=== PATIENT | female | born 1940 | race Caucasian/White ===

== ENCOUNTER 2022-07-20 15:36 | Outpatient (CLI) | payer MEDICARE, SELFPAY ==
--- NOTE | 2022-07-20 15:57 | ECHO_ITS ---
Patient Info Name: Chapis Villafuerte Age: 82 years : 1940 Gender: Female Ht: 67 in Wt: 211 lbs BSA: 2.16 m2 HR: 100 bpm BP: 170 / 111 mmHg Heart Rhythm: Sinus Rhythm Technical Quality: Fair Exam Date: 07/20/2022 4:07 PM Exam Location: [facility] Pulmonary Patient Status: Outpatient Admit Date: 07/20/2022 Staff Ordering Physician: Shirlene Barksdale MD Manager Machine: Silas Turner RDCS Attending Provider: Bo Ledbetter DO Referring Physician: Apolonia RAMIREZ; Exam Type: CA echo doppler color flow Study Info Indications - cardiac murmur Complete two-dimensional, color flow and Doppler transthoracic echocardiogram is performed. Summary 1. Complete two-dimensional, color flow and Doppler transthoracic echocardiogram is performed. 2. Left ventricular chamber dimension is normal. 3. Ventricular septum is sigmoid shaped. No LVOT obstruction. 4. Left ventricular systolic function is normal, estimated at 55-60%. 5. There is mild concentric increased left ventricular wall thickness. 6. The left ventricular diastolic function is abnormal. 7. E/e' 11 is mildly elevated. 8. Right ventricular chamber dimension is moderately enlarged. 9. Left atrial chamber dimension is severely enlarged. 10. Right atrial chamber dimension is severely enlarged. 11. There is mild aortic valve sclerosis. 12. There is mild aortic valve regurgitation. 13. There is mild to moderate mitral valve regurgitation. 14. There is moderate to severe tricuspid valve regurgitation. 15. Mild pulmonary hypertension, estimated pulmonary arterial systolic pressure is 42 mmHg. 16. There is mild pulmonic regurgitation. 17. Normal inferior vena cava with <50% collapse upon inspiration consistent with elevated right atrial pressure, 10 mmHg. Left Ventricle E/e' 11 is mildly elevated. Ventricular septum is sigmoid shaped. No LVOT obstruction. Left ventricular chamber dimension is normal. Left ventricular systolic function is normal, estimated at 55-60%. There is mild concentric increased left ventricular wall thickness. The left ventricular diastolic function is abnormal. Right Ventricle Right ventricular systolic function is normal and with normal TAPSE 1.7 cm. Right ventricular chamber dimension is moderately enlarged. Left Atria Left atrial chamber dimension is severely enlarged. Right Atria Right atrial chamber dimension is severely enlarged. Aortic Valve The aortic valve is trileaflet. There is mild aortic valve sclerosis. There is no aortic valve stenosis. There is mild aortic valve regurgitation. Pulmonic Valve There is mild pulmonic regurgitation. Mitral Valve There is no mitral valve stenosis. There is mild to moderate mitral valve regurgitation. Tricuspid Valve There is moderate to severe tricuspid valve regurgitation. Mild pulmonary hypertension, estimated pulmonary arterial systolic pressure is 42 mmHg. Pericardium/Pleural There is no pericardial effusion. Inferior Vena Cava Normal inferior vena cava with <50% collapse upon inspiration consistent with elevated right atrial pressure, 10 mmHg. Aorta The aortic root size at the sinus of Valsalva is normal. Left Ventricular Outflow Tract Name Value Normal LVOT 2D LVOT Diameter 2.6 cm LVOT Doppler
== END 2022-07-20 15:37 | disposition home or self-care (01) ==
LOC: ANHCARD 15:36
PROVIDERS: PCP Family Medicine; Visit Provider Internal Medicine Cardiovascular Disease
DX: R01.1 Cardiac murmur, unspecified (principal); I08.3 Combined rheumatic disorders of mitral, aortic and tricuspid valves
CPT/HCPCS: 93306

== ENCOUNTER 2022-10-12 12:35 | Outpatient (CLI) | payer MEDICARE, SELFPAY ==
--- NOTE | 2022-11-01 19:16 | WPDSLEEPSTUD ---
Sleep Study Date of Study: 10/12/22 Ordering Provider: PRASHANT Portillo Interpreting Physician: Emerald Fu DO Sleep Study Type: Split Polysomnogram Height: 1.7 m Weight: 97.522 kg Body Mass Index: 33.6 Neck Circumference (inches): 14 [place]: 17 Reason for Sleep Study Previously diagnosed KIKO. Used to be on CPAP and BPAP Sleep History The patient is an 82-year-old female with asthma, atrial fibrillation, hypertension, GERD, gout, arthritis and previously diagnosed sleep apnea that had a sleep study ordered to requalify for PAP therapy. The patient frequently awakens from sleep short of breath. She frequently awakens at night with heartburn, belching or cough. She frequently has trouble sleeping when she has a cold. She occasionally wakes up gasping for air throughout the night. She frequently has breathing problems at night observed by herself or others. She constantly sweats excessively. She occasionally has heart palpitations or irregular heartbeats during the night. She constantly falls asleep during the day but never while driving. She denies sleep paralysis, cataplexy and hypnagogic / hypnopompic hallucinations. She denies feeling afraid of going to sleep. She denies having nightmares. She occasionally remembers her dreams. She occasionally has thoughts racing through her mind. She frequently feels sad or depressed. She frequently has anxiety. She rarely has muscular tension. She denies noticing parts of her body jerk. She denies kicking during the night. She occasionally has crawling and aching feelings in her legs and occasionally has leg pain during the night. She occasionally grinds her teeth during sleep but never awakens morning jaw pain. She is rarely bothered by pain during the day but never awakened by pain during the night. She constantly wakes up feeling stiff in morning. She constantly wakes up with sore or achy muscles. She constantly wakes up with pain in the neck, spine or other joints. She goes to bed between 10:30-11 p.m. on both weekdays and weekends. It takes her 10-15 minutes to fall asleep. She wakes up 1-2 times throughout the night to urinate but is unable to go back to sleep at times. She wakes up between 5-8 a.m. both weekdays and weekends. She will typically get 5-8 hours of sleep per night. She does not stay in bed after waking up in the morning. She currently lives alone. She denies consuming any caffeinated beverages within 2 hours of bedtime. She denies engaging in physical exercise before bedtime. She will watch television before falling asleep. She will take naps in the afternoon or the evening and they are refreshing. She consumes 1-2 cups of coffee per day. She denies tobacco, alcohol and recreational drug use. [facility] Past Medical History Medical History (Updated 11/01/22 @ 19:32 by Emerald Fu DO) Acute pain of right knee Asthma Benign essential HTN Essential hypertension Foot pain, right GERD (gastroesophageal reflux disease) Gout Hypersomnia KIKO (obstructive sleep apnea) Primary narcolepsy without cataplexy Primary osteoarthritis of both knees Primary osteoarthritis of right hip Primary osteoarthritis of right knee SOB (shortness of breath) Trochanteric bursitis of right hip Vertigo Surgical History Surgical History S/P arthroscopic partial medial meniscectomy Status post Ycnthia fundoplication Family History Family History Mother Family history of malignant neoplasm Cerebrovascular accident, Onset Age: 78 Father Family history of tuberculosis Patient's father is , Onset Age: 51 Sibling Family history of arthritis Family history of Alzheimer's disease Other Diabetes mellitus Family history of gout Hypertension Social History Social History (Reviewed 11/01/22 @ 19:22 by Chang
[2022-11-01 19:58] VITALS: BMI 33.6
== END 2022-10-13 07:36 | disposition home or self-care (01) ==
LOC: ANHCSM 12:35
PROVIDERS: PCP Family Medicine; Visit Provider Physician Assistant
DX: G47.33 Obstructive sleep apnea (adult) (pediatric) (principal); K21.9 Gastro-esophageal reflux disease without esophagitis; I10 Essential (primary) hypertension; J45.909 Unspecified asthma, uncomplicated; I48.91 Unspecified atrial fibrillation
CPT/HCPCS: 95811

== ENCOUNTER 2023-05-17 14:27 | Outpatient (CLI) | payer MEDICARE, SELFPAY ==
[2023-05-17 14:00] VITALS: PULSE 82; O2SAT 96
[2023-05-17 14:05] VITALS: PULSE 98; O2SAT 94
[2023-05-17 14:10] VITALS: PULSE 84; O2SAT 95
--- NOTE | 2023-05-17 15:59 | HOMEO2EVAL ---
Evaluation was performed at [facility] Home Oxygen Evaluation RC: Home Oxygen (O2) Evaluation Start: 05/17/23 15:57 Freq: Status: Active Protocol: RPE Activity Type Activity Date Activity User E-sign Co-sign Detail Recorded Client Recorded Date Recorded By Document 05/17/23 14:00 LAURA [id number] 05/17/23 15:58 LAURA Document 05/17/23 14:05 LAURA [id number] 05/17/23 15:58 LAURA Document 05/17/23 14:10 LAURA [id number] 05/17/23 15:58 LAURA 05/17/23 05/17/23 05/17/23 14:00 14:05 14:10 Home O2 Evaluation [Oxygen] -Test Phase Resting Exercise Resting -Oxygen Delivery Room Air Room Air Room Air [Pulse Oximetry] -Pulse Oximetry (90-100 %) 96 94 95 [Pulse Rate] -Pulse Rate (60-100 beats/min) 82 98 84 [Charges] -Evaluation Charges O2 Evaluation by Pulmonary
--- NOTE | 2023-05-20 14:15 | WPDPFTINT ---
PFT Procedure Performed PFT Procedure Performed Spirometry with Pre/Post Bronchodilator Plethysmography (Lung Vol) Diffusing Cap (DLCO) Flow Vol Loop PFT Interpretation DOS: 05/17/2023 REQUESTING: Janina Lane PA-C REASON FOR TESTING: Dyspnea PULMONARY FUNCTION TESTS Results are reliable and reproducible. Repeatability of spirometry FEV1 maneuver pre and post bronchodilator is Grade A. Spirometry: The pre-bronchodilator FEV1 is 1.57 L, 77%. The pre-bronchodilator FVC is 2.47 L, 91%. The FEV1/FVC ratio is 63%, low end of normal. After bronchodilator, the FEV1 is 1.63 L, 79% predicted, 4% increase. The post bronchodilator FVC is 2.74 L, 101%, 11% increase. The FEV1/FVC ratio is 59% after bronchodilator. Lung volumes: The total lung capacity is 6.85 L, 125%, increased. The residual volume is 3.22 L, 124%, normal. The RV/TLC is 47%. [place]way resistance is 177%, increased. Diffusion: DLCO is 13.6, 67%, mildly decreased. The DLCO/VA is 3.68, 93%, normal. Flow volume loop: The flow volume loop shows coving of the expiratory limb consistent with airflow obstruction. IMPRESSION: This study shows mild obstructive ventilatory impairment without significant response to bronchodilator, mild hyperinflation, mild diffusion impairment that normalizes for alveolar volume. Lack of response to bronchodilator should not preclude use if clinically indicated. Compared to a prior study 08/17/2017, vlues were similar except for FEV1 which was 1.91 L , 91% and now is significantly lower, 1.57 L, still in the normal range. Alissa Schmidt MD
== END 2023-05-17 14:28 | disposition home or self-care (01) ==
LOC: ANHPFT 14:28
PROVIDERS: PCP Family Medicine; Visit Provider Physician Assistant
DX: R06.09 Other forms of dyspnea (principal); R94.2 Abnormal results of pulmonary function studies
CPT/HCPCS: 94060; 94618; 94726; 94729

== ENCOUNTER 2023-07-05 10:30 | Outpatient (CLI) | payer MEDICARE, SELFPAY ==
--- NOTE | ~2023-07-05 | XR_ITS ---
EXAMINATION: XR hip BI 2V w AP pelvis DATE: 07/05/2023 11:11 INDICATION: Right hip pain. TECHNIQUE: An anteroposterior view of the pelvis and 2 views of each hip were obtained. COMPARISON: Pelvis and right hip radiographs 12/28/2016 FINDINGS: There is levocurvature of lumbar spine. No fracture. There is mild osteoarthritis of the hi ps. Osteitis pubis is noted. IMPRESSION: 1. Mild osteoarthritis of the hips. Reviewed, dictated and finalized at location E.
--- NOTE | ~2023-07-05 | XR_ITS ---
Left Knee Technique: AP, lateral, and sunrise views were obtained. Clinical History: Osteoarthritis Findings: No fracture or dislocation is seen. There is a very large osteophyte arising from the poste rior margin of the medial tibial plateau, with moderate femoral medial joint line osteophyte. There i s mild osteophyte formation at the intercondylar notch and patella.. Soft tissues are unremarkable. N o joint effusion is seen. Impression: Tricompartmental degenerative change, worst in the medial compartment, as detailed above. Reviewed, dictated and finalized at location M. Impression: Tricompartmental degenerative change, worst in the medial compartment, as francois led above.
--- NOTE | ~2023-07-05 | XR_ITS ---
Right Knee Technique: AP, lateral, and sunrise views were obtained. Clinical History: Osteoarthritis Findings: No fracture or dislocation is seen. Osseous alignment is anatomic. There is mild tricompart mental degenerative change. Soft tissues are unremarkable. No joint effusion is seen. Impression: Mild tricompartmental degenerative change. Reviewed, dictated and finalized at location . Impression: Mild tricompartmental degenerative change.
== END 2023-07-05 10:31 | disposition home or self-care (01) ==
PROVIDERS: PCP Family Medicine; Visit Provider Orthopaedic Surgery
DX: M16.0 Bilateral primary osteoarthritis of hip (principal); M17.0 Bilateral primary osteoarthritis of knee
CPT/HCPCS: 73521; 73564

== ENCOUNTER 2024-01-24 09:45 | Outpatient (CLI) | payer MEDICARE, SELFPAY ==
--- NOTE | ~2024-01-24 | NM_ITS ---
EXAMINATION: NM hiren stress w perfusion DATE: 01/24/2024 11:54 INDICATION: Abnormal electrocardiogram. Encounter for preprocedural cardio exam. TECHNIQUE: Rest images were obtained following intravenous administration of 9.1 mCi Tc99m tetrofosmi n (Myoview). The patient was infused intravenously with Lexiscan (regadenoson). Then, 30.1 mCi Tc99m tetrofosmin (Myoview) was administered intravenously, and stress images were obtained. Data was recon structed into short axis and horizontal and vertical long axis SPECT images. Gated SPECT images were also obtained. COMPARISON: None. FINDINGS: There is no definite reversible or fixed perfusion abnormality to suggest ischemia or infar ction. There is no segmental wall motion abnormality. Left ventricular ejection fraction measures > 70%. IMPRESSION: 1. No definite ischemia or infarct. 2. Normal left ventricular ejection fraction measuring >70%. Reviewed, dictated and finalized at location A. FINISHER HAND
--- NOTE | 2024-01-24 09:57 | EST_ITS ---
Patient Info Name: Chapis Villafuerte Age: 83 years : 1940 Gender: Female Ht: 67 in Wt: 215 lbs BSA: 2.18 m2 Exam Date: 01/24/2024 10:47 AM Exam Location: Echo Lab Patient Status: Outpatient Admit Date: 01/24/2024 Staff Ordering Physician: Bo Ledbetter DO Attending Provider: Bo Ledbetter DO Exercise Technologist: Supriya Beth RDCS Exercise Physician: Bo Ledbetter DO Exam Type: CA stress hiren w NM Study Info A regadenoson stress test was performed. Summary 1. 1. Negative lexiscan stress test for ischemic ST changes by ECG criteria. 2. 2. Baseline hypertension. 3. 3. Nuclear scan to follow and will be reported separately. Please correlate with it. 4. 4. Patient informed of the above results. Protocol: Lexiscan Stress ECG Details Stage: REST Duration (min): 2 min : 1 sec HR (bpm): 66 SBP (mmHg): 171 DBP (mmHg): 94 Stage: REST Duration (min): 4 min : 2 sec HR (bpm): 73 SBP (mmHg): 171 DBP (mmHg): 94 Stage: STAGE 1 Duration (min): 1 min : 0 sec HR (bpm): 81 SBP (mmHg): 171 DBP (mmHg): 94 Stage: RECOVERY Duration (min): 1 min : 0 sec HR (bpm): 80 SBP (mmHg): 179 DBP (mmHg): 89 Stage: RECOVERY Duration (min): 2 min : 0 sec HR (bpm): 69 SBP (mmHg): 168 DBP (mmHg): 89 Stage: RECOVERY Duration (min): 3 min : 0 sec HR (bpm): 66 SBP (mmHg): 160 DBP (mmHg): 89 Stage: RECOVERY Duration (min): 3 min : 9 sec HR (bpm): 61 SBP (mmHg): 160 DBP (mmHg): 89 Rest HR: 73 bpm Peak HR: 89 bpm Rest Sys BP: 171 mmHg Peak Sys BP: 179 mmHg Max Pred HR: 137 bpm % Max Pred HR: 65 % Target HR: 116 bpm Max RPP: 15,931 bpm*mmHg Termination Reason: Completed protocol Cardiac Symptoms: Shortness of breath Total Time: 1 min : 0 sec Rest Roca BP: 94 mmHg Peak Roca BP: 89 mmHg Total Dose: 0.4 mg Resting ECG Atrial fibrillation, delayed precordial R/S transition, cannot r/o septal infarct, age indeterminate. Stress ECG No ST changes. Arrhythmias No other arrhythmias. Report Signatures
== END 2024-01-24 09:46 | disposition home or self-care (01) ==
LOC: ANHCARD 09:56
PROVIDERS: PCP Family Medicine; Visit Provider Internal Medicine Cardiovascular Disease
DX: Z01.810 Encounter for preprocedural cardiovascular examination (principal)
CPT/HCPCS: 78452; 93017; A9502; J2785

== ENCOUNTER 2024-03-25 14:22 | Outpatient (CLI) | payer MEDICARE, SELFPAY ==
--- NOTE | ~2024-03-25 | XR_ITS ---
Left foot Technique: AP and lateral views were obtained. Clinical History: Second metatarsal bruising Findings: No acute fracture or dislocation is seen. There is chronic healed fracture or postoperative change of the first metatarsal. There is relative cortical thickening and sclerosis extensively invo lving the second metatarsal shaft.. Joint spaces are preserved without erosive or degenerative change . Soft tissues are unremarkable. Impression: Relative cortical thickening and sclerosis of the second metatarsal shaft. This could reflect chronic posttraumatic change, or possibly stress fracture or chronic osteomyelitis. Correlate clinically. Reviewed, dictated and finalized at location M. LACTATION CONSULTANT Impression: Relative cortical thickening and sclerosis of the second metatarsal shaft. This could reflect chronic posttraumatic change, or possibly stress fracture or chr onic osteomyelitis. Correlate clinically.
--- OUTSIDE RECORDS SUMMARY | 2024-03-25 14:35 | XMS_ITS | Clinical Summary ---
Author Organization [facility] Address [address] [place] [id number] Care Team Providers Care Adhesion Tester Name Role Phone New Referring, Provider Primary Care Provider Un available Social History Tobacco Use Types Packs/Day Years Used Date Smoking Tobacco: Never Assessed Comments Unknown Sex and Gender Information Value Date Recorded Sex Assigned at Not on file Legal Sex Female 9:26 AM CDT Gender Identity Not on file Sexual Orientation Not on file Plan of Treatment Health Maintenance Due Date Last Done Comments Zoster Vaccines (1 of 2) 1990 Annual Medicare Wellness Visit 2005 Dexa Scan (General) 2005 RSV Immunization or 60+ Years (1 - 1-dose 75+ series) 2015 COVID-19 Vaccine (2023-2 5 season) 2023 Influenza Adult (#1) 2023 01/21/2014, 01/20/2013 DTaP, Tdap and Td Vaccines ( 2 - Td or Tdap) 06/27/2025 06/28/2015, 11/11/2009 Pneumococcal Vaccine: 65+ Years Completed 10/01/2015, 11/11/2009 Meningococcal B Vaccine Aged Out No l onger eligible based on patient's age to complete this topic Meningococcal Vaccine Aged Out No moi nereyda eligible based on patient's age to complete this topic RSV Immunizations Under 20 Months Aged Out No longer eligible b ased on patient's age to complete this topic Insurance [employer] Member Subscriber Plan / Payer (Ef fective 2020-Present) Name:Chapis Villafuerte Relation to Subscriber:Self Name:Chapis Villafuerte Payer ID:Not on file Type:Not on file Address: [address] Care Teams Adhesion Tester Relationship Specialty Start Date End Date New Referring, Provider PCP - General UNKNOWN PHYSICIAN SPECIALTY 06/09/20
--- OUTSIDE RECORDS SUMMARY | 2024-03-25 14:35 | XMS_ITS | Referral Summary ---
Author Organization [facility] Address [address] [place] [address] Care Team Providers Care Second Baller Name Role Phone Ariana Cobb MD Primary Care Provider [phone] Source Comments [facility],non-owned Affiliates and Associated Physician Practices is amultiple site organization consisting of ambulatory clinics and hospital sitesin [place], [place], [place] and [place]. This disclosure is being madepursuant to the Care Everywhere program and may not contain all information available regarding this patient. Last updated 17.[facility] [employer] Active Problems Problem Noted Date Diagnosed Date Sensorineural hearing loss of both ears 12/20/19 12 Migraine without status migrainosus, not intract able 11/17/2011 Benign paroxysmal vertigo 11/17/2011 Social History Tobacco Use Types Packs/Day Years Used Date Smoking Tobacco: Never Smokeless Tobacco: Never Alcohol Use Standard Drinks/Week Comments No 0 (1 standard drink = 0.6 oz pur e alcohol) Sex and Gender Information Value Date Recorded Sex Assigned at Not on file Gender Identity Not on file Sexual Orientation Not on file Plan of Treatment Not on file Care Teams Second Baller Relationship Specialty Start Date End Date Ariana Cobb MD [address] [place] [address] PCP - General 02/14/11
--- OUTSIDE RECORDS SUMMARY | 2024-03-25 14:35 | XMS_ITS | Clinical Summary ---
Author Organization [facility] Address [address] [place] [address] Care Team Providers Care Block Sealer Name Role Phone Ariana Cobb MD Primary Care Provider [phone] [facility],non-owned Affiliates and Associated Physician Practices is amultiple site organization consisting of ambulatory clinics and hospital sitesin [place], [place], [place] and [place]. This disclosure is being madepursuant to the Care Everywhere program and may not contain all information available regarding this patient. Last updated 17.[facility] [employer] Active Problems Problem Noted Date Diagnosed Date Sensorineural hearing loss of both ears 12/20/19 12 Migraine without status migrainosus, not intract able 11/17/2011 Benign paroxysmal vertigo 11/17/2011 Family History Medical History Relation Name Comments Tuberculosis Father Anemia Mother Arthritis - Rheumatoid Mother CVA Mother Cancer Mother Diabetes Mother Osteoporosis Mother Thyroid Disease Mother Relation Name Status Comments Father Mother Social History Tobacco Use Types Packs/Day Years [...] Health Maintenance Due Date Last Done Comments BONE DENSITY TESTING 1940 DTAP/TDAP/TD VACCINES (1 - Tdap) 1959 PNEUMOCOCCAL VACCINE 50+ (1 of 1 - PCV) 1990 ZOSTER VACCINE (1 of 2) 1990 Respiratory Syncytial Virus (RSV) Vaccine Pt: or over 60 yrs (1 - 1-dose 75+ series) 2015 COVID-19 VACCINE (1 - 2024-2 5 season) 2023 INFLUENZA VACCINE (#1) 2023 DEPRESSION SCREENING 02/20/2024 MEDICARE AWV ? CALENDAR YEAR 2024 HEPATITIS B VACCINE Aged Out No longe r eligible based on patient's age to complete this topic HIB VACCINE Aged Out No longer eligi ble based on patient's age to complete this topic HPV VACCINE Aged Out No longer eligi ble based on patient's age to complete this topic MENINGOCOCCAL (Group B) VACCINE Aged Out No longer eligible based on patient's age to complete this topic MENINGOCOCCAL VACCINE Aged Out No moi nereyda eligible based on patient's age to complete this topic Care Teams Block Sealer Relationship Specialty Start Date End Date Ariana Cobb MD [address] [place] [address] PCP - General 02/14/11
--- OUTSIDE RECORDS SUMMARY | 2024-03-25 14:35 | XMS_ITS | Encounter Summary ---
Author Organization [facility] Address [address] [place] [address] Care Team Providers Care Marine Photographer Name Role Phone Ariana Cobb MD Primary Care Provider [phone] Encounter Details Date Type Department Care Team (Late st Contact Info) Description 12/21/2022 Lab Requisition [facility] - DermPath Lab [address] [facility] [place] [address] Chris Stanley MD [facility] DERMATOLOGY [address] [place] [phone] Other follicular cysts of the skin and subcutaneous tissue; Other disturbances of skin sensation Social History Tobacco Use Types Packs/Day Years Used Date Smoking Tobacco: Never Smokeless Tobacco: Never Alcohol Use Standard Drinks/Week Comments No 0 (1 standard drink = 0.6 oz pur e alcohol) Sex and Gender Information Value Date Recorded Sex Assigned at Not on file Gender Identity Not on file Sexual Orientation Not on file documented as of this encounter Plan of Treatment Not on file documented as of this encounter Procedures Procedure Name Priority Date/Time Associated Diagnosis Comments DERMATOPATHOLOGY Routine 12/21/2022 12:0 0 AM CDT Other follicular cysts of the skin and subcutaneous tissue Other disturbances of skin sensation documented in this encounter Results * DERMATOPATHOLOGY (12/21/2022 12:00 AM CDT) Case Report Dermatopathology Report ? Case: [id number] ? Authorizing Provider: ??Chris Stanley MD ? Collected: ? 12/21/2022 12:00 AM ? Ordering Location: ? [facility] ? Received: ?12/22/2022 12:48 PM ? Pathologist: ? Shanelle Adler MD ? Specimens: ?? A) - Skin, left superior parietal scalp ? B) - Skin, right central parietal scalp ? C) - Skin, left central parietal scalp ? 3 1:29 PM [facility] DERMATOPATHOLOGY LABORATORY Final Diagnosis Specimen A. SKIN, left superior parietal scalp: TRICHILEMMAL (PILAR) CYST (L72.12) PRESENT AT MARGIN Specimen B. SKIN, right central parietal scalp: TRICHILEMMAL (PILAR) CYST (L72.12) PRESENT AT MARGIN Specimen C. SKIN, left central parietal scalp: TRICHILEMMAL (PILAR) CYST (L72.12) PRESENT AT MARGIN 3 1:29 PM [facility] DERMATOPATHOLOGY LABORATORY Clinical History A-C: Cyst. Check Margins. 1:29 PM [facility] DERMATOPATHOLOGY LABORATORY Gross Description Specimen A: Received is one formalin filled container labeled with the patient's name and designated left superior parietal scalp. The specimen consists of a 4x4x3 mm piece of skin. The margin is inked green. The specimen is bisected lengthwise and submitted in 1 cassette. Jar 0. Specimen B: Received is one formalin filled container labeled with the patient's name and designated right central parietal scalp. The specimen consists of a 5x5x4 mm piece of skin. The margin is inked green. The specimen is bisected lengthwise and submitted in 1 cassette. Jar 0. Specimen C: Received is one formalin filled container labeled with the patient's name and designated left central parietal scalp. The specimen consists of a [id number] mm piece of skin. The margin is inked green. The specimen is bisected lengthwise and submitted in 1 cassette. Jar 0. 1:29 PM [facility] DERMATOPATHOLOGY LABORATORY Microscopic Description Specimen A. SKIN, left superior parietal scalp: Sections show a cyst that is lined by stratified squamous epithelium that shows trichilemmal keratinization (no granular layer). There is homogeneous pink keratin within the cyst. This lesion is present at the margin of the specimen. Specimen B. SKIN, right central parietal scalp: Sections show a cyst that is lined by stratified squamous epithelium that shows trichilemmal keratinization (no granular layer). There is homogeneous pink keratin within the cyst.This lesion is present at the margin of the specimen. Specimen C. SKIN, left central parietal scalp: Sections show a cyst that is lined by stratified squamous epithelium that shows trichilemmal keratinization (no granular layer). There is homogeneous pink keratin within the cyst. This lesion is present at the margin of the specimen. 3 1:29 PM [facility] DERMATOPATHOLOGY LABORATORY Disclaimer An external and internal positive and negative controls are appropriate for the histochemical, immunohistochemical and immunofluorescence stain(s) in this case (if any), except where stated explicitly. The performance characteristics of the stain(s) cited in this report were developed and its performance characteristic determined by the Dermatopathology Laboratory at [facility], directed by Dr. Lili Siddiqi. These tests need not be, and therefore are not, approved by the [place] Food and Drug Administration. The tests are used for clinical purposes. Billing Codes Specimen Charges Stain Charges 72262 53961 12344 1 1 1 3 1:29 PM [facility]SO[facility] C[facility] DERMATOPATHOLOGY LABORATORY Embedded Images 3 1:29 PM [facility] DERMATOPATH[facility]Y LABOR[facility]ORY Pathology/Cytology TISSUE SPECIMEN FROM SKIN / Unknown 12/21/2022 12/22/2022 12:48 PM CDT Miscellaneous samples (specimen) TISSUE SPECIMEN FROM SKIN / Unknown 12/21/2022 12/22/2022 12:48 PM CDT Miscellaneous samples (specimen) TISSUE SPECIMEN FROM SKIN / Unknown 12/21/2022 12/22/2022 12:48 PM CDT Chris Stanley MD LAB - PATHOLOGY/CYTO LOGY ORDERABLES DERMATOPATHOLOGY LABORATORY [facility] Department of Dermatology [facility] Medicine [address] [place] [address], [address] [phone] documented in this encounter Visit Diagnoses Diagnosis Other follicular cysts of the skin and subcutaneous tissue Other disturbances of skin sensation documented in this encounter Care Teams Marine Photographer Relationship Specialty Start Date End Date Ariana Cobb MD [address] [place] [address] PCP - General 02/14/11 documented as of this encounter
--- OUTSIDE RECORDS SUMMARY | 2024-03-25 14:35 | XMS_ITS | Clinical Summary ---
Author Organization [facility] Address [address] [place] [address] Phone Care Team Providers Care Topographic Computator Name Role Phone Provider, None Primary Care Provider Unavailabl e Allergies No known active allergies Medications allopurinol (ZYLOPRIM) 300 MG Tablet Take 300 mg by mouth daily. Active levothyroxine (SYNTHROID) 100 MCG Tablet Take 100 mcg by mouth daily. Active fluticasone (FLONASE) 50 MCG/ACT Suspension 1-2 Sprays by Nasal route daily. Use in each nostril as directed. Active azelastine (ASTELIN) 0.1 % Solution 2 Sprays by Nasal route 2 times daily. Use in each nostril as directed Active methylPREDNISol one (MEDROL DOSPACK) 4 MG Tablet Therapy Pack See product package insert for dosing schedule 21 Tab 0 7 Active albuterol 108 (90 Base) MCG/ACT Aerosol Solution take 2 Puffs by inhalation every 6 hours as needed for Cough. 1 Inhaler 0 Active azithromycin (ZITHROMAX) 250 MG Tablet 2 tab(s) daily for 1 day, then 1 tab(s) daily for days 2-5. 6 Tab 0 Active Social History Tobacco Use Types Packs/Day Years Used Date Smoking Tobacco: Never Smokeless Tobacco: Never Alcohol Use Standard Drinks/Week Comments No 0 (1 standard drink = 0.6 oz pur e alcohol) Comments No Sex and Gender Information Value Date Recorded Sex Assigned at Not on file Legal Sex Female 8:51 PM CDT Gender Identity Not on file Sexual Orientation Not on file Last Filed Vital Signs Vital Sign Reading Time Taken Comments Blood Pressure 203/81 01/28/2020 4:00 PM CATH LAB MANAGER Pulse 61 01/28/2020 4:15 PM CATH LAB MANAGER Temperature 36.2 ??C (97.1 ??F) 01/28/2020 1:23 PM CS T Respiratory Rate 23 01/28/2020 4:15 PM CATH LAB MANAGER Oxygen Saturation 98% 01/28/2020 4:15 PM CATH LAB MANAGER Inhaled Oxygen Concentration - - Weight 95.2 kg (209 lb 14.1 oz) 01/28/2020 1:25 PM CATH LAB MANAGER Height 170.2 cm (5' 7 ) 01/28/2020 1:25 PM CATH LAB MANAGER Body Mass Index 32.87 01/28/2020 1:25 PM CATH LAB MANAGER Plan of Treatment Health Maintenance Due Date Last Done Comments DEXA Bone Density 1940 Hepatitis C Virus (HCV) Screening 1940 TdaP Immunization 1940 Pneumococcal Immunization (5 0+ years) (1 of 1 - PCV) 1990 Zoster Immunization (1 of 2) 1990 Respiratory Syncytial Virus (RSV) Immunization (Adult) (1 - 1-dose 75+ series) 2015 Influenza Immunization (#1) 2023 SARS-COV-2 Immunization ( season) 2023 Hepatitis B Immunization Aged Out No longer eligible based on patient's age to complete this topic Meningococcal Immunization (ACWY) Aged Out No longer eligible based on patient's age to complete this topic Rotavirus Immunization Aged Out No lo nger eligible based on patient's age to complete this topic Insurance [facility] MEDICARE Care Teams Topographic Computator Relationship Specialty Start Date End Date Provider, None [place] PCP - General 01/23/20
--- OUTSIDE RECORDS SUMMARY | 2024-03-25 14:35 | XMS_ITS | Continuity of Care Document ---
Author Organization [facility] Address [address] [place] [address] [place] [address] Phone Care Team Providers Care Inspector Floor Name Role Phone Sukumar Nicole MD Unavailable Unavailable Allergies, Adverse Reactions, Alerts Substance Reaction Status Criticality No Known Allergies Active No Inform ation Medications Medication Instructions Dosage Effective Dates (start - stop) Status Comments levothyroxine 112 mcg capsule take 1 capsule by oral route every day 112 MCG - Active omeprazole 20 mg tablet,delayed release take 1 by oral route every day 1 - Active allopurinol 300 mg tablet take 1 tablet by oral route every day 300 MG - Active losartan 100 mg tablet take 1 tablet by oral route every day 100 MG - Active hydrochlorothiazide 25 mg tablet take 1 tablet by oral route every day 25 MG - Active Advance Directives Directive Yes / No Effective Date File Name No Information Encounters Encounter Description Practice Location Reason(s) For Visit Diagnoses Date Provider Providers Copied on Encounter [facility], [address] [place] [address] [address], [place], [place], [id number], tel:[phone] [place] Professional No Information 3 Corey Patino. [address] [facility] [address], [place], [place], [id number], [place]. tel:[phone] Family History Family Member Type Diagnosis Age At Onset Problem Family history of Diabetes m gasper Payers Payer name Insurance type Covered green party ID Authoriza tion(s) No Information Social History Type Description Quantity Date Captured Comments Alcohol Use Details No Caffeine Use Details Tobacco Use Status Current non-smoker Smoking Status Never smoker Non-Smoking Tobacco Use Details : No Details Available : No Details Available Sex Female Chief Complaint And Reason For Visit No Information Reason For Referral Reason For Referral No Information History Of Present Illness Encounter Date Complaint History Of Prese nt Illness No Information Functional Status Date Functional Assessmen t No Information Instructions Date Instruction Additional Infor mation No Information Assessments Type Assessment Date No Information Patient Care Teams Name Effective Dates (start - stop) Status Members No Information
--- OUTSIDE RECORDS SUMMARY | 2024-03-25 14:35 | XMS_ITS | Patient Health Summary ---
Author Organization [facility] Address [address] [place] [address] Care Team Providers Care Finished Stock Inspector Name Role Phone Ariana Cobb MD Primary Care Provider [phone] Note from [facility],non-owned Affiliates and Associated Physician Practices is amultiple site organization consisting of ambulatory clinics and hospital sitesin [place], [place], [place] and [place]. This disclosure is being madepursuant to the Care Everywhere program and may not contain all information available regarding this patient. Last updated 17.[facility] Active Problems Problem Noted Date Diagnosed Date [...] on file Sexual Orientation Not on file Procedures * DERMATOPATHOLOGY(Performed 12/21/2022) Performed for Other follicular cysts of the skin and subcutaneous tissue, Other disturbances of skin sensation Results * DERMATOPATHOLOGY (12/21/2022 12:00 AM CDT) Case Report Dermatopathology Report ? Case: [id number] ? Authorizing Provider: ??Chris Stanley MD ? Collected: ? 12/21/2022 12:00 AM ? Ordering Location: ? [facility] ? Received: ?12/22/2022 12:48 PM ? Pathologist: ? Shanelle Adler MD ? Specimens: ?? A) - Skin, left superior parietal scalp ? B) - Skin, right central parietal scalp ? C) - Skin, left central parietal scalp ? 3 1:29 PM [facility] DERMATOPATHOLOGY LABORATORY Final Diagnosis Specimen A. SKIN, left superior parietal scalp: TRICHILEMMAL (PILAR) CYST (L72.12) PRESENT AT MARGIN Specimen B. SKIN, right central parietal scalp: TRICHILEMMAL (PILAR) CYST (L72.12) PRESENT AT MARGIN Specimen C. SKIN, left central parietal scalp: TRICHILEMMAL (PILAR) CYST (L72.12) PRESENT AT MARGIN 3 1:29 PM [facility] DERMATOPATHOLOGY LABORATORY Clinical History A-C: Cyst. Check Margins. 3 1:29 PM [facility] DERMATOPATHOLOGY LABORATORY Gross Description Specimen A: Received [...] parietal scalp. The specimen consists of a [id number] mm piece of skin. The margin is inked green. The specimen is bisected lengthwise and submitted in 1 cassette. Jar 0. 3 1:29 PM [facility] DERMATOPATHOLOGY LABORATORY Microscopic Description Specimen A. SKIN, [...] margin of the specimen. 3 1:29 PM [facility] DERMATOPATHOLOGY LABORATORY Disclaimer An external and internal positive and negative controls are appropriate for the histochemical, immunohistochemical and immunofluorescence stain(s) in this case (if any), except where stated explicitly. The performance characteristics of the stain(s) cited in this report were developed and its performance characteristic determined by the Dermatopathology Laboratory at [facility], directed by Dr. Lili Siddiqi. These tests need not be, and therefore are not, approved by the [place] Food and Drug Administration. The tests are used for clinical purposes. Billing Codes Specimen Charges Stain Charges 55444 91152 [id number] 1 1 1 3 1:29 PM TRAINING DESIGNER DERMATOPATHOLOGY LABORATORY Embedded Images 3 1:29 PM TRAINING DESIGNER DERMATOPATHOLOGY LABORATORY Pathology/Cytology TISSUE SPECIMEN FROM SKIN / Unknown 12/21/2022 12/22/2022 12:48 PM CDT Miscellaneous samples (specimen) TISSUE SPECIMEN FROM SKIN / Unknown 12/21/2022 12/22/2022 12:48 PM CDT Miscellaneous samples (specimen) TISSUE SPECIMEN FROM SKIN / Unknown 12/21/2022 12/22/2022 12:48 PM CDT Chris Stanley MD LAB - PATHOLOGY/CYTO LOGY ORDERABLES DERMATOPATHOLOGY LABORATORY [facility] - Department of Dermatology [facility] Specialized Medicine [address] [place] [address], [address] [phone] Care Teams Finished Stock Inspector Relationship Specialty Start Date End Date Ariana Cobb MD [address] [place] [address] PCP - General 02/14/11
== END 2024-03-25 14:23 | disposition home or self-care (01) ==
PROVIDERS: PCP Family Medicine; Visit Provider Family Medicine
DX: M79.675 Pain in left toe(s) (principal)
CPT/HCPCS: 73620

== ENCOUNTER 2024-07-30 13:10 | Outpatient (CLI) | payer MEDICARE, SELFPAY ==
--- NOTE | ~2024-07-30 | XR_ITS ---
Right Knee Technique: AP, lateral, and sunrise views were obtained. Clinical History: Arthritis Findings: No fracture or dislocation is seen. Osseous alignment is anatomic. There is mild to moderat e tricompartmental degenerative change. Soft tissues are unremarkable. No joint effusion is seen. Impression: Mild to moderate tricompartmental degenerative change. Reviewed, dictated and finalized at location . Impression: Mild to moderate tricompartmental degenerative change.
--- NOTE | ~2024-07-30 | XR_ITS ---
XR knee LT min 4V 07/30/2024 13:35 Indication: Osteoarthritis of the knee. Procedure: 4 views left knee Comparison: 07/05/2023 Findings: There is tricompartment osteoarthritis, moderate-severe in the medial compartment. There is an osteochondroma originating from the posterior aspect of the tibial plateau. No significant joint effusion. No acute fracture or traumatic malalignment. Impression: 1: Moderate-severe tricompartment osteoarthritis. 2: Prominent osteochondroma originating from the posterior aspect of the medial tibial plateau, best seen on lateral view. No significant interval change. Reviewed, dictated and finalized at location B. Impression: 1: Moderate-severe tricompartment osteoarthritis. 2: Prominent osteochondroma originating from the posterior aspect of the medial tibial plateau, best seen on lateral view. No significant interval change.
--- OUTSIDE RECORDS SUMMARY | 2024-07-30 15:20 | XMS_ITS | Clinical Summary ---
Author Organization [facility] Address [address] [place] [address] Phone Care Team Providers Care Blood Bank Attendant Name Role Phone Provider, None Primary Care [...] Comments Blood Pressure 203/81 01/28/2020 4:00 PM SHIPYARD HELPER Pulse 61 01/28/2020 4:15 PM SHIPYARD HELPER Temperature 36.2 C (97.1 F) 01/28/2020 1:23 PM SHIPYARD HELPER Respiratory Rate 23 01/28/2020 4:15 PM SHIPYARD HELPER Oxygen Saturation 98% 01/28/2020 4:15 PM SHIPYARD HELPER Inhaled Oxygen Concentration - - Weight 95.2 kg (209 lb 14.1 oz) 01/28/2020 1:25 PM SHIPYARD HELPER Height 170.2 cm (5' 7) 01/28/2020 1:25 PM SHIPYARD HELPER Body Mass Index 32.87 01/28/2020 1:25 PM SHIPYARD HELPER Plan of Treatment Health Maintenance Due Date Last Done Comments Hepatitis C Virus (HCV) Screening 1940 TdaP Immunization 1940 Pneumococcal Immunization (5 0+ years) (1 of 1 - PCV) 1990 Zoster Immunization (1 of 2) 1990 Respiratory Syncytial Virus (RSV) Immunization (Adult) (1 - 1-dose 75+ series) 2015 SARS-COV-2 Immunization ( - 2023- season) 2023 Influenza Immunization (Seas on Ended) 2024 Hepatitis B Immunization Aged Out No longer eligible based on patient's age to complete this topic Human Papillomavirus (HPV) Immunization Aged Out No longer eligible b ased on patient's age to complete this topic Meningococcal Immunization (ACWY) Aged Out No longer eligible based on patient's age to complete this topic Rotavirus Immunization Aged Out No lo nger eligible based on patient's age to complete this topic Insurance [facility] MEDICARE Care Teams Blood Bank Attendant Relationship Specialty Start Date End Date Provider, None [place] PCP - General 01/23/20
--- OUTSIDE RECORDS SUMMARY | 2024-07-30 15:20 | XMS_ITS | Encounter Summary ---
Author Organization [facility] Address [address] [place] [address] Care Team Providers Care Citrus Peeler Name Role Phone Ariana Cobb MD Primary Care Provider [phone] Encounter Details Date Type Department Care Team (Late st Contact Info) Description 12/21/2022 Lab Requisition [facility] - DermPath Lab [address] [place] [id number] Chris Stanley MD [facility] DERMATOLOGY [address] [place] [phone] Other follicular cysts of the skin and subcutaneous tissue; Other disturbances of skin sensation Social History Tobacco Use Types Packs/Day Years Used Date Smoking Tobacco: Never Smokeless Tobacco: Never Alcohol Use Standard Drinks/Week Comments No 0 (1 standard drink = 0.6 oz pur e alcohol) Comments Unknown Sex and Gender Information Value Date Recorded Sex Assigned at Not on file Legal Sex Female 6:33 PM JIG AND FIXTURE BUILDER Gender Identity Not on file Sexual Orientation [...] 12:00 AM CDT) Case Report Dermatopathology Report Case: [id number] Authorizing Provider: Chris Stanley MD Collected: 12/21/2022 12:00 AM Ordering Location: [facility] DermPath Lab Received: 12/22/2022 12:48 PM Pathologist: Shanelle Adler MD Specimens: A) - Skin, left superior parietal scalp B) - Skin, right central parietal scalp C) - Skin, left central parietal scalp 1:29 PM [facility] DERMATOPATHOLOGY LABORATORY Final Diagnosis Specimen A. SKIN, left superior parietal scalp: TRICHILEMMAL (PILAR) CYST (L72.12) PRESENT AT MARGIN Specimen B. SKIN, right central parietal scalp: TRICHILEMMAL (PILAR) CYST (L72.12) PRESENT AT MARGIN Specimen C. SKIN, left central parietal scalp: TRICHILEMMAL (PILAR) CYST (L72.12) PRESENT AT MARGIN 1:29 PM [facility] DERMATOPATHOLOGY LABORATORY at [address] JIG AND FIXTURE BUILDER Clinical History A-C: Cyst. Check Margins. 1:29 PM [facility] DERMATOPATHOLOGY LABORATORY Gross Description Specimen A: Received [...] parietal scalp. The specimen consists of a [id number] mm piece of skin. The margin is inked green. The specimen is bisected lengthwise and submitted in 1 cassette. Jar 0. 1:29 PM [facility] DERMATOPATHOLOGY LABORATORY Microscopic Description Specimen A. SKIN, [...] margin of the specimen. 3 1:29 PM [facility] DERMATOPATHOLOGY LABORATORY Disclaimer An external and internal positive and negative controls are appropriate for the histochemical, immunohistochemical and immunofluorescence stain(s) in this case (if any), except where stated explicitly. The performance characteristics of the stain(s) cited in this report were developed and its performance characteristic determined by the Dermatopathology Laboratory at [facility], directed by Dr. Lili Siddiqi. These tests need not be, and therefore are not, approved by the [place] Food and Drug Administration. The tests are used for clinical purposes. Billing Codes Specimen Charges Stain Charges 31703 [id number] [id number] 1 1 1 3 1:29 PM [facility] DERMATOPATHOLOGY LABORATORY Embedded Images 3 1:29 PM [facility] DERMATOPATHOLOGY LABORATORY Pathology/Cytology TISSUE SPECIMEN FROM SKIN / Unknown 12/21/2022 12/22/2022 12:48 PM CDT Miscellaneous samples (specimen) TISSUE SPECIMEN FROM SKIN / Unknown 12/21/2022 12/22/2022 12:48 PM CDT Miscellaneous samples (specimen) TISSUE SPECIMEN FROM SKIN / Unknown 12/21/2022 12/22/2022 12:48 PM CDT us Chris Stanley MD LAB - PATHOLOGY/CYTOLOGY [facility] Final Result DERMATOPATHOLOGY LABORATORY [facility] - Department of Dermatology [address], [address] [phone] documented in this encounter Visit Diagnoses Diagnosis Other follicular cysts of the skin and subcutaneous tissue Other disturbances of skin sensation documented in this encounter Care Teams Citrus Peeler Relationship Specialty Start Date End Date Ariana Cobb MD [address] [place] [address] PCP - General 02/14/11 documented as of this encounter
--- OUTSIDE RECORDS SUMMARY | 2024-07-30 15:20 | XMS_ITS | Encounter Summary ---
[facility] Organization [facility] Address [address] [place] [address] Phone Care Team Providers Care Sole Cutter Name Role Phone Ronald Frazier MD Primary Care Provider [phone] Ronald Frazier MD Primary Care Provider [phone] Ronald Frazier MD Primary Care Provider [phone] Ronald Frazier MD Primary Care Provider [phone] Ronald Frazier MD Primary Care Provider [phone] Ronald Frazier MD Primary Care Provider [phone] Ronald Frazier MD Primary Care Provider [phone] Ronald Frazier MD Primary Care Provider [phone] Ronald Frazier MD Primary Care Provider [phone] Ronald Frazier MD Primary Care Provider [phone] Evita Nash MD Unavailable Albin Javed MD Unavailable [phone] Juliana Guerrero DPM Unavailable [phone] Becki Wells MD Unavailable [phone] Karina Menezes MD Unavailable [phone] Herman Dixon MD Unavailable Tammy Casas SENIOR SUPPORT ENGINEER Unavailable Pradip Cruzito Juárez DPM Unavailable [phone] Shasha Stanley SENIOR SUPPORT ENGINEER Unavailable [phone] Eugenio Mccoy Unavailable + [phone] Alissa Schmidt MD Unavailable Encounter Details Date Type Department Care Team (Late st Contact Info) Description 12/27/2009 Orders Only [facility] [address] [place] [id number] Ronald Frazier MD [address] [place] [address] Social History Tobacco Use Types Packs/Day Years Used Date Smoking Tobacco: Never Assessed Comments Unknown Sex and Gender Information Value Date Recorded Sex Assigned at Not on file 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 Gender Identity Not on file Sexual Orientation Not on file documented as of this encounter Plan of Treatment Not on file documented as of this encounter Procedures Procedure Name Priority Date/Time Associated Diagnosis Comments CARDIOLOGY DOCUMENT SCAN 12/27/2009 documented in this encounter Results * SCAN - CARDIOLOGY (12/27/2009) Anatomical Region Laterality Modality Other us Ronald Frazier MD CV CARDIAC SERVICES PROCEDURE S Final Result documented in this encounter Visit Diagnoses Not on filedocumented in this encounter Additional Health Concerns Infection Onset Date Last Indicated Resolved Time COVID: Suspected 06/08/2021 06/08/2021 06/08/2021 2:58 PM CDT documented as of this encounter Care Teams Sole Cutter Relationship Specialty Start Date End Date Ronald Frazier MD [address] [place] [address] PCP - General 05/19/16 Ronald Frazier MD [address] [place] [address] PCP - General 11/22/15 05/18/16 Ronald Frazier MD [address] [place] [address] PCP - General 06/13/13 11/21/15 Ronald Frazier MD [address] [place] [address] PCP - General 03/27/13 06/12/13 Ronald Frazier MD [address] [place] [address] PCP - General 12/27/12 03/26/13 Ronald Frazier MD [address] [place] [address] PCP - General 12/26/12 12/26/12 Ronald Frazier MD [address] [place] [address] PCP - General 05/15/12 12/25/12 Ronald Frazier MD [address] [place] [address] PCP - General 02/17/11 05/14/12 Ronald Frazier MD [address] [place] [address] PCP - General 06/23/10 02/16/11 Ronald Frazier MD [address] [place] [address] PCP - General 06/07/10 06/22/10 Evita Nash MD [address] [place] [address] Consulting Physician Neurology 11/10/16 Albin Javed MD [address] [place] [address] Consulting Physician Orthopedic Surgery 09/28/16 Juliana Guerrero DPM [address] [facility] [address] [place] [address] Consulting Physician Podiatry 01/28/17 Becki [place] MD [address] [address] Referring Physician Pulmonary Disease 07/20/17 09/27/23 Karina Menezes MD [address] [place] [address] Yeast Washer Obstetrics and Gynecology 09/02/18 Herman Dixon MD [address] [place] [address] Consulting Physician Gastroenterology 01/22/19 Tammy Casas NP [address] [place] [address] Nurse Practitioner Sleep Medicine 09/26/19 Cruzito Moseley, DPZaira [address] [place] [address] Consulting Physician Podiatry 10/17/21 Shasha [place] NP [address] [place] [address] [place] [address] Nurse Practitioner Dermatology 11/03/21 Eugenio Mccoy PA [address] [place] [address] Physician Packaging Technician Dermatology 07/04/23 Alissa Schmidt MD [address] [facility] [address] [place] [address] Consulting Physician Pulmonary Disease 07/03/23 documented as of this encounter
--- OUTSIDE RECORDS SUMMARY | 2024-07-30 15:20 | XMS_ITS | Encounter Summary ---
Author Organization [facility] Address [address] [place] [address] Phone Care Team Providers Care Assembler Piano Name Role Phone Ronald Frazier MD Primary Care Provider [phone] Evita [place] MD Unavailable Albin Javed MD Unavailable [phone] Juliana Guerrero DPM Unavailable [phone] Becki [place] MD Unavailable [phone] Karina Menezes MD Unavailable Herman [place] MD Unavailable [phone] Tammy Casas NP Unavailable [phone] Cruzito Moseley DPM Unavailable [phone] Shasha [place] NP Unavailable [phone] Eugenio Mccoy Unavailable + [phone] Alissa Schmidt MD Unavailable [phone] Encounter Details Date Type Department Care Team (Late st Contact Info) Description 11/14/2016 Orders Only [facility] [address] [place] [address] Ronald Frazier MD [address] [place] [address] Social History Tobacco Use Types Packs/Day Years Used Date Smoking Tobacco: Never Smokeless Tobacco: Never Alcohol Use Standard Drinks/Week Comments No 0 (1 standard drink = 0.6 oz pur e alcohol) Comments Unknown Sex and Gender Information Value Date Recorded Sex Assigned at Not on file 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 Gender Identity Not on file Sexual Orientation Not on file documented as of this encounter Plan of Treatment Not on file documented as of this encounter Procedures Procedure Name Priority Date/Time Associated Diagnosis Comments SCAN - RADIOLOGY/IMAGING 11/14/2016 12:38 PM CDT documented in this encounter Results * SCAN - RADIOLOGY/IMAGING (11/14/2016 12:38 PM CDT) Anatomical Region Laterality Modality Other Ronald Frazier MD Final Result documented in this encounter Visit Diagnoses Not on filedocumented in this encounter Additional Health Concerns Infection Onset Date Last Indicated Resolved Time COVID: Suspected 06/08/2021 06/08/2021 06/08/2021 2:58 PM CDT documented as of this encounter Care Teams Assembler Piano Relationship Specialty Start Date End Date Ronald Frazier MD [address] [place] [address] PCP - General 05/19/16 Evita [place] MD [address] [place] [address] Consulting Physician Neurology 11/10/16 Albin Javed MD [address] [place] [address] Consulting Physician Orthopedic Surgery 09/28/16 Juliana Guerrero DPM [facility] [address] [address] Consulting Physician Podiatry 01/28/17 Becki [place] MD [address] [facility] [address] [place] [address] Referring Physician Pulmonary Disease 07/20/17 09/27/23 Karina Menezes MD [address] [place] [address] Political Science Professor Obstetrics and Gynecology 09/02/18 Herman [place] MD [address] [place] [address] Consulting Physician Gastroenterology 01/22/19 Tammy Casas NP [address] [place] [address] Nurse Practitioner Sleep Medicine 09/26/19 Cruzito Moseley DPM [address] [place] [address] Consulting Physician Podiatry 10/17/21 Shasha [place] NP [address] [place] [address] [place] [address] Nurse Practitioner Dermatology 11/03/21 Eugenio Mccoy PA [address] [place], [place] [id number] Physician Coal Cutter Dermatology 07/04/23 Alissa [place] MD [address] [id number] Consulting Physician Pulmonary Disease 07/03/23 documented as of this encounter
--- OUTSIDE RECORDS SUMMARY | 2024-07-30 15:20 | XMS_ITS | Continuity of Care Document ---
Author Organization [facility] Address [address] [place] [address] [place] [address] Phone Care Team Providers Care Seafood Specialist Name Role Phone Sukumar Nicole MD Unavailable Unavailable Allergies, Adverse Reactions, Alerts Substance Reaction Status Criticality No Known Allergies Active No Inform ation Medications Medication Instructions Dosage Effective Dates (start - stop) Status Comments hydrochlorothiazide 25 mg tablet take 1 tablet by oral route every day 25 MG - Active losartan 100 mg tablet take 1 tablet by oral route every day 100 MG - Active allopurinol 300 mg tablet take 1 tablet by oral route every day 300 MG - Active omeprazole 20 mg tablet,delayed release take 1 by oral route every day 1 - Active levothyroxine 112 mcg capsule take 1 capsule by oral route every day 112 MCG - Active Advance Directives Directive Yes / No Effective Date File Name No Information Encounters Encounter Description Practice Location Reason(s) For Visit Diagnoses Date Provider Providers Copied on Encounter [facility], [address] [place] [address] [address], [place], [place], [id number], tel:[phone] [address] [place] Professional No Information 3 Corey Patino. [address] [facility] [place] [address], [place], [place], [id number], [place]. tel:[phone] Family History Family Member Type Diagnosis Age [...]
--- OUTSIDE RECORDS SUMMARY | 2024-07-30 15:20 | XMS_ITS | Clinical Summary ---
Author Organization [facility] Address [address] [place] [address] Care Team Providers Care Patient Accounts Coordinator Name Role Phone Ariana Cobb MD Primary Care Provider [phone] Source Comments [facility],non-owned Affiliates and Associated Physician Practices is amultiple site organization consisting of ambulatory clinics and hospital sitesin [place], [place], [place] and [place]. This disclosure is being madepursuant to the Care Everywhere program and may not contain all information available regarding this patient. 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 Gender Identity Not on file Sexual Orientation Not on file Plan of Treatment Health Maintenance Due Date Last Done Comments BONE DENSITY TESTING 1940 DTAP/TDAP/TD VACCINES (1 - Tdap) 1959 PNEUMOCOCCAL VACCINE 50+ (1 of 1 - PCV) 1990 ZOSTER VACCINE (1 of 2) 1990 Respiratory Syncytial Virus (RSV) Vaccine Pt: or over 60 yrs (1 - 1-dose 75+ series) 2015 COVID-19 VACCINE (2023-2 5 season) 2023 DEPRESSION SCREENING 02/20/2024 MEDICARE AWV CALENDAR YEAR 2024 INFLUENZA VACCINE (Season Ended) 2024 HEPATITIS B VACCINE Aged Out No longe r eligible based on patient's age to complete this topic HIB VACCINE Aged Out No longer eligi ble based on patient's age to complete this topic HPV VACCINE Aged Out No longer eligi ble based on patient's age to complete this topic MENINGOCOCCAL (Group B) VACC INE SHARED DECISION-MAKING Aged Out No longer eligibl e based on patient's age to complete this topic MENINGOCOCCAL GROUPS A/C/Y/W VACCINE Aged Out No longer eligible b ased on patient's age to complete this topic Insurance [facility] MEDICARE AET[employer] MEDICARE ADV Care Teams Patient Accounts Coordinator Relationship Specialty Start Date End Date Ariana Cobb MD [address] [place] [address] PCP - General 02/14/11
--- OUTSIDE RECORDS SUMMARY | 2024-07-30 15:20 | XMS_ITS | Clinical Summary ---
Author Organization [facility] Address [address] [place] [address] Care Team Providers Care Teletypist Name Role Phone Ronald Frazier MD Primary Care Provider [phone] Evita Nash MD Unavailable Albin Javed MD Unavailable [phone] Juliana Guerrero DPM Unavailable [phone] Karina Menezes MD Unavailable Herman Dixon MD Unavailable [phone] Tammy Casas NP Unavailable [phone] rCuzito Moseley DPM Unavailable [phone] Shasha Stanley NP Unavailable [phone] Eugenio Mccoy Unavailable [phone] Alissa Schmidt MD Unavailable [phone] Allergies Active Allergy Reactions Criticality Noted Date Comments Tetracycline Rash Medium Reaction: Rash, Medications allopurinoL (ZYLOPRIM) 300 mg tablet Take 1 tablet (300 mg total) by mouth daily 90 tablet 2 12/07/19 21 Active nystatin powderIndications: Intertrigo Apply topically 3 (three) times a day 60 g 3 12/07/19 21 Active albuterol HFA (ProAir HFA) 90 mcg/actuation inhalerIndications :Bronchospasm Prevention Inhale 2 puffs every 4 (four) hours as needed for wheezing 3 each 5 06/09/19 22 Active hydroCHLOROthiazid e (HYDRODIURIL) 25 mg tablet Take 1 tablet (25 mg total) by mouth daily 90 tablet 2 06/09/19 22 Active levothyroxine (SYNTHROID) 112 mcg tabletIndications: Adult hypothyroidism Take 1 tablet (112 mcg total) by mouth daily 90 tablet 2 06/09/19 22 Active carvediloL (COREG) 6.25 mg tabletIndications: Benign hypertension Take 2 tablets (12.5 mg total) by mouth 2 (two) times a day with meals 180 tablet 2 06/24/19 22 Active simethicone (MYLICON) 125 mg chewable tablet Take 125 mg by mouth every 6 (six) hours as needed 07/05/19 22 Active clobetasoL (TEMOVATE) 0.05 % ointmentIndication s:Atopic dermatitis of scalp Apply topically 2 (two) times a day 15 g 2 09/15/19 22 Active omeprazole (PriLOSEC) 20 mg capsuleIndications :GERD Take 1 capsule (20 mg total) by mouth daily 90 capsule 3 10/22/19 22 Active Xarelto 20 mg tablet Take 1 tablet (20 mg total) by mouth daily with breakfast 06/18/19 24 Active hydrALAZINE (APRESOLINE) 50 mg tablet Take 1 tablet (50 mg total) by mouth 2 (two) times a day 05/18/19 24 Active oxyBUTYnin (DITROPAN) 5 mg tablet Take 1 tablet (5 mg total) by mouth 2 (two) times a day 06/15/19 24 Active valACYclovir (VALTREX) 500 mg tabletIndications: Herpes simplex infection of genitourinary system Take 1 tablet (500 mg total) by mouth daily as needed (HSV outbreaks.) 90 tablet 09/28/19 24 Active albuterol 1.25 mg/3 mL nebulizer solution Take 3 mL (1.25 mg total) by nebulization 2 (two) times a day as needed for wheezing 07/03/19 24 Active Active Problems Problem Noted Date Diagnosed Date Family history of colon cancer 06/14/2023 Personal history of colonic polyps 06/14/2023 Encounter for screening colonoscopy 06/14/2023 Skin lesions 11/03/2021 Overview (04/16/2022): Pilar cyst, irritated seborrheic keratosis, other findings, see derm note, Tiffanie Langston ANP. Assessment & Plan (12/24/2021 5:05 PM CDT): Pilar cyst, irritated seborrheic keratosis, other findings, Tiffanie Langston, JOSE LUIS. Assessment & Plan (09/14/2021 11:55 AM CDT): Presents with superficial itchy macular, scaly rash to posterior neck and hairline. Concern is for psoriasis. She has used topical nystatin and hydrocortisone with little change. Will order Steroid ointment to use as directed. Encouraged oral antihistamine use also. Will call or return with worsening or persistent symptoms. Nail dystrophy 10/17/2021 Overview (12/24/2021): Saw Clovis Moseley DPM for nail trimming. Drug-induced constipation 06/30/2021 Overview (07/04/2021): Since starting diltiazem. Assessment & Plan (07/08/2021 8:48 AM CDT): Imaging from two days ago suggested constipation, possibly due to diltiazem given for her atrial fibrillation. She took some citrate of magnesia and had several watery stools. She feels slightly improved, but still has a bloated feeling and is belching a lot. She has been able to eat a normal diet for her. I recommended something relatively bland for now without a lot of grease or other harsh foods. Assessment & Plan (07/18/2021 10:40 AM CDT): She was started on diltiazem for atrial fibriallation five days ago. That is about when she started to have constipation and frequent belching. There has been no fever. She did have a bout of severe lower posterior pelvic pain of uncertain cause or significance. It lasted an hour so, and has not recurred. She has not had a bowel movement in five days. There is no perianal bleeding. She is belching a lot. I do not think all of these symptoms could be attributed to diltiazem, and I encouraged her to continue taking it. She did take a dose this morning. The combination of diltiazem and a beta-pro seems to be controlling her heart rate pretty well. We are getting three views of the abdomen and some lab work. We will probably recommend some MiraLax or Mag citrate to alleviate her constipation. She will try some simethicone for the belching. We will see her back in two days. Bruit of left carotid artery 10/18/2020 Assessment & Plan (10/18/2020 2:10 PM CDT): She has either a bruit in the left carotid artery or a transmitted murmur. No definite bruit on the right side. We will check carotid Dopplers. She says she had them a few years ago, but there is nothing on file. Urinary urgency 08/20/2019 Assessment & Plan (10/18/2020 2:04 PM CDT): For the past year or so, she has had urinary frequency and urgency. There is no dysuria or hematuria. She could have either a neurogenic bladder or overactive bladder. We will check a urine and postvoid residual volumes. We will make suggestions after results are available. Intertrigo 11/26/2018 Overview (12/17/2018): Under both breasts. Assessment & Plan (12/29/2018 7:38 AM [employer] DEPARTMENT CHAIR): About three weeks ago, she developed an irritated rash under both breasts. She was applying cotton cloth to soak up the sweat. This helped under the left breast where the rash is almost completely resolved. However, the right breast still exhibits a moderate intertrigo. It was so bad one of her skin tag started bleeding. Exam is consistent with intertrigo. There is no breast mass or discharge. There is no cellulitis. We will give her topical nystatin for use 3 times daily. Return in one week if not better. Dysphagia 11/21/2018 Overview (09/30/2020): Added automatically from request for surgery [id number], EGD 01/22/2019, mild reflux erosive esophagitis. Minimal reflux esophagitis on biopsy, MELISSA Dixon. Heart murmur, systolic 08/19/2017 Assessment & Plan (10/18/2020 2:09 PM CDT): She has a heart murmur. She says she has had it for s everal years. She says she has had an echocardiogram and I do see one from 2009 when some mild valvular abnormalities were noted as well as diastolic dysfunction. She is currently asymptomatic from a cardiovascular standpoint so we will defer any additional workup for now. Swollen feet 04/27/2017 Overview (05/18/2017): Left foot worse than right. She is always on her feet, taking care of house, etc. Assessment & Plan (06/24/2017 5:55 AM CDT): Her D-dimer was borderline positive, but venous Dopplers were negative. Some of the lab tests ordered were not processed correctly, so I have no 24 hr urine protein. We will dipstick her urine for protein and if positive, request a 24 hr collection. The BNP was also not done as requested, so this will be reordered. If positive we will get an echocardiogram. Exam today is fairly unremarkable with little bit of wheezing in her lungs which could be due to allergies. Follow-up in two months or sooner as needed. Assessment & Plan (05/27/2017 5:10 PM CDT): She has noticed swelling in her legs for the last several weeks. She has been on her feet a lot, so this could be a dependent edema, but she is also on Norvasc which can cause fluid retention. It does not seem to be controlled with the hydrochlorothiazide, so we will put her on a loop diuretic for a period of time. Follow-up in six months or sooner as needed. Low bone density 03/16/2017 Overview (10/23/2020): Follow up bone density, [facility], 10/21/2020: AP LUMBAR SPINE L1-L4: T-score is -1.7 LEFT HIP: T-score is -0.1 Femoral neck T-score is -1.9 Genital herpes 03/16/2017 Trochanteric bursitis of right hip 09/28/2016 Overview (11/18/2016): See Dr. Javed's note. Adult hypothyroidism 10/01/2015 Overview (05/25/2016): Hypothyroid Assessment & Plan (10/18/2020 2:12 PM CDT): She has not had her thyroid replacement checked for awhile. We will get a TSH. We will adjust the dose of replacement as needed. Assessment & Plan (09/14/2018 6:51 PM CDT): She has been on a stable replacement dose. Last TSH was borderline elevated, but stable, so we are not changing the dose of replacement at this time, especially since she will go for days or longer at a time without taking her medication. We will continue to monitor periodically. Lab Results Component Value Date TSH 4.85 (H) 08/28/2018 Gout 10/01/2015 Overview (05/25/2016): Gout Thrombocytopenia 04/27/2015 Overview (11/05/2016): Probably due to platelet clumping (platelets normal in citrate tube). Mixed hyperlipidemia 03/22/2015 Overview (05/25/2016): Hyperlipidemia Assessment & Plan (10/26/2020 9:25 AM CDT): She has not had labs for awhile. She says her cholesterol has always been g ood. We will check a follow-up profile to give her feedback on her diet. Assessment & Plan (09/14/2018 6:55 PM CDT): She is not currently on cholesterol medication. Her numbers have deteriorated a little bit with a low HDL and increased LDL. She has issues with noncompliance and has trouble remembering or taking the medications that she already has, so we are deferring any intervention for now. Lab Results Component Value Date CHOL 197 08/28/2018 CHOL 223 (H) 11/03/2016 Lab Results Component Value Date HDL 34 (L) 08/28/2018 HDL 43 (L) 11/03/2016 Lab Results Component Value Date LDLCALC 107 08/28/2018 LDL 149 (H) 11/03/2016 Lab Results Component Value Date TRIG 278 (H) 08/28/2018 TRIG 178 (H) 11/03/2016 Assessment & Plan (05/18/2017 1:22 PM CDT): We are trying to control this with diet and weight loss. Check follow-up labs periodically. Seasonal mood disorder 03/22/2015 Overview (05/27/2016): Seasonal mood disorder Atopic rhinitis 07/24/2014 Overview (05/25/2016): Allergic rhinitis Osteoarthritis of knee 02/26/2014 Overview (05/27/2016): Osteoarthritis of left knee Spinal stenosis 11/03/2013 Overview (05/27/2016): Spinal stenosis Assessment & Plan (05/12/2021 12:12 PM CDT): Patient has history of spinal stenosis and low back pain. She presents today with pain that begin in left lower back and goes into buttock and to thigh. She reports associated tingling. No recent injury. On exam she has limited ROM bilaterally with straight leg raises, but no weakness. Denies any loss of bowel or bladder control. Pain most likely exacerbated by recent prolonged sitting and car travel. Given known history of spinal stenosis and no injury we will proceed with PT and chiropractic management. We will also send muscle relaxer for pain. She reports recent xray by chiropractor in [place] and will attempt to obtain records. She will follow up in 4-6 weeks or sooner if needed. Seasonal allergic rhinitis 07/20/2013 Overview (05/25/2016): Seasonal nasal allergies Benign hypertension 05/28/2013 Overview (05/26/2016): Hypertension, benign Assessment & Plan (07/04/2021 12:33 PM CDT): Blood pressure is little high. Since she had the onset of belching and constipation, she has taken some medications intermittently or not at all including diltiazem. She did take all of her blood pressure medications this morning. Hopefully we will be able to address her GI symptoms and allow for better compliance and control of blood pressure. Follow-up in two days. Assessment & Plan (06/28/2021 8:17 AM CDT): Blood pressure is mildly to moderately elevated. Pulse rate is also a little high. We will increase the dose of carvedilol and see her back in two weeks. Assessment & Plan (06/08/2021 3:19 PM CDT): Patient BP noted to be elevated at visit today. She admits she ran out of her losartan 3 weeks ago and has been unable to get from her mail order pharmacy. We will refill today to local pharmacy and discussed importance of not missing medications with patient. We discussed that if she runs out again she should call so we can send to local pharmacy. She will return in 2 weeks for recheck on BP or sooner if needed. Assessment & Plan (10/18/2020 2:11 PM CDT): Blood pressure is a little too high. She brought in her wrist cuff from home, and she has mostly similar readings, sometimes a little higher, sometimes a little lower. She did not tolerate amlodipine in the past. We will add some carvedilol, risks of medication discussed. We will check with her in a couple weeks for blood pressure readings. Return in six months. Assessment & Plan (09/14/2018 6:52 PM CDT): Blood pressure is quite elevated, especially systolic. It sounds like she has significant lapses in compliance with her blood pressure and other medication. Sometimes she will go for a week without taking her medicine. This usually occurs when she is feeling depressed. She does say she has been taking her amlodipine and diuretic recently. Lisinopril she says was stopped due to a cough about a year ago. We will put her on losartan instead. We will have her get a good quality blood pressure cuff and check blood pressures at home. Return in one month to review. If still elevated, adjustment in doses or addition of other medication may be needed. Assessment & Plan (06/13/2017 1:21 PM CDT): Blood pressure is in a good range, but she is still having swelling in her feet despite starting a loop diuretic. It could be the Norvasc. We will stop the Norvasc and put her back on lisinopril and hydrochlorothiazide. Follow-up in about two months. Assessment & Plan (05/18/2017 1:20 PM CDT): Blood pressure is in a reasonable range. She has no worrisome symptoms such as chest pain, but has developed a little bit of swelling in her legs. It could be due to the Norvasc, and is not being controlled with the hydrochlorothiazide. We will stop the thiazide diuretic and put her on Lasix. Check a basic metabolic panel in a week or so. Once the swelling is controlled, she can take the Lasix as needed. Follow-up here in six months. Peripheral neuropathy 04/01/2013 Overview (03/26/2018): Peripheral neuropathy, details lacking. Osteoarthritis of multiple joints 04/01/2013 Overview (12/08/2021): Chronic pain due to osteoarthritis of multiple joints. 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 Obstructive sleep apnea syndrome 11/08/2012 Overview (05/18/2017): Not currently on CPAP. Assessment & Plan (09/02/2018 3:43 PM CDT): She saw Dr. Wells. CPAP was recommended for mild to moderate sleep apnea but she still has not made the arrangements. She also had a more complex sleep disturbance suggestive of narcolepsy or cataplexy, but no treatment was recommended at this time as the findings were somewhat equivocal. She will make her follow-up appointment with Dr. Wells. Assessment & Plan (06/24/2017 5:54 AM CDT): She had mild sleep apnea on a sleep study a number of years ago, is not on CPAP. If her sleep apnea has worsened, it could be contributing to swelling in her legs via pulmonary hypertension. She has an appointment to see Dr. Wells on July 20. We will follow up with the patient after that. Assessment & Plan (05/18/2017 1:23 PM CDT): She has a long history of sleep apnea, and when it came time to update her settings she had a home sleep study that showed mild sleep apnea. She was supposed to get a follow-up study in the lab, but it was apparently never done or not approved. I am not sure of the details. They then ordered a new CPAP mask for her, but she was skeptical about the whole process which included a down payment and co-payment, so she never got it. She is looking for another provider so we will refer her to Dr. Wells in [place]. Fibrocystic breast changes 06/18/2012 Overview (05/26/2016): Fibrocystic breast changes Sensorineural hearing loss of both ears 12/20/19 12 Borderline diabetes 03/12/2011 Overview (05/25/2016): Glucose intolerance (impaired glucose tolerance) Assessment & Plan (10/18/2020 2:11 PM CDT): She is moderately obese. We will check fasting blood sugar and consider other workup as needed. Assessment & Plan (05/18/2017 1:21 PM CDT): We are monitoring this periodically. She is trying to eat right and lose weight but it is difficult. Continue efforts. Diastolic dysfunction 04/22/2009 Overview (06/02/2017): See Stress Echo done 12/27/2009, technically difficult, with mild AI, mild MR, probable diastolic dysfunction, otherwise normal. Persistent mood disorder 08/20/2007 Overview (09/02/2018): Mood problems off and on for most of her adult life, worse recently. Assessment & Plan (10/18/2020 2:04 PM CDT): She says her mood is okay at the moment. She does not take her Wellbutrin every day, but will take it for few weeks at a time when her mood goes down. It seems to work for her. Assessment & Plan (09/14/2018 6:56 PM CDT): She has had mood issues for many years, intermittently for most of her life. They seem to have gotten worse later in life. Sometimes she goes for a week or two without getting out of her pajamas. She does not brush her teeth. She has no suicidal ideation, but sometimes she wonders why she is still here. She has no motivation or pleasure in life. When she gets like this she stops taking her medication. This sounds like major depression. She does not want to see a psychiatrist or other mental health professional. We will put her on Wellbutrin, risks of medication discussed. We will see her back in one month to see how she is doing and if the dose needs to be escalated. Paroxysmal atrial fibrillation 08/19/2006 Overview (06/23/2021): First diagnosed in [place], patient was told it was nothing to worry about. Assessment & Plan (07/06/2021 2:56 PM CDT): Heart rate is pretty well controlled. She has been taking her cardiac medications. We will see her back in two days. Assessment & Plan (07/04/2021 12:45 PM CDT): She is on Eliquis, carvedilol, and diltiazem. Heart rate is controlled. She saw Dr. Horton and DC cardioversion is planned because she is so symptomatic. Today heart rate is controlled but she is tired and short of breath. She has abdominal bloating. I do not think she has experienced any kind of embolic complication. Her bili is really not tender at all and bowel sounds are normal. However, GI function could be affected by the diltiazem that was added recently, or by relative hypoperfusion from the atrial fibrillation. We will see her back in two days. Assessment & Plan (06/28/2021 8:18 AM CDT): She says the doctor told her about 15 years ago that she had a little atrial fibrillation but it was nothing to worry about. We have checked her several times in the past and she has always been in sinus rhythm. However with the recent acute respiratory illness, she was in atrial fibrillation and it has persisted. She feels short of breath. We will increase the dose of beta-pro to slow her heart down some more. We will keep her on the Eliquis. Her shortness of breath is probably an indication that she could benefit from cardioversion. We will get an echocardiogram and refer her to cardiology. Moderate persistent asthma without complication 12/20/1997 Assessment & Plan (07/04/2021 12:43 PM CDT): She has an albuterol inhaler for use as needed. She ran out of Symbicort. We sent in a refill. However, today her lungs are actually fairly clear with no crackles or wheezes audible. Oxygen saturation is normal at 97% on room air. She feels short of breath, probably because she is in atrial fibrillation. I do not think the lungs are the main cause of her symptoms. Assessment & Plan (06/28/2021 8:18 AM CDT): She is currently using a rescue inhaler as needed. She used to be on Symbicort, and it still appears on her list. We will leave it there for now pending re- evaluation in two weeks. Assessment & Plan (10/18/2020 2:05 PM CDT): She has inhalers which she uses as needed. She has plenty on hand. Continue same. Assessment & Plan (09/02/2018 3:43 PM CDT): She saw Dr. Wells. She was put on Symbicort. We added it to her medication list. She also has a rescue inhaler for use as needed. Assessment & Plan (12/26/2017 12:56 PM [employer]MENT CHAIR): She has mild, intermittent and mostly seasonal asthma. She is out of her inhaler, so we sent in a refill. Gastroesophageal reflux disease 02/19/1949 Overview (01/22/2019): GERD, status post Tonny. EGD on 01/22/2019:Mild reflux erosive esophagitis, biopsied; normal stomach and duodenum. Dr. Dixon [facility]. Assessment & Plan (07/06/2021 2:56 PM CDT): She has been taking omeprazole. She is still belching a lot. She has a little bit of epigastric pain. Eating seems to make it worse. The cause of her current symptoms remains unclear. She wondered about gallbladder disease. We will get abdominal ultrasound. Consider other workup as needed. She does feel a little better today than two days ago. Consider referral to GI for a follow-up endoscopy to evaluate for peptic disease. Assessment & Plan (07/04/2021 12:36 PM CDT): She has been belching a lot despite taking omeprazole. She says she has been taking about one dose a day compared to her usual b.i.d. dosing. We are adding some simethicone to hopefully improve her symptoms. Follow-up in two days. Assessment & Plan (06/23/2021 12:23 PM CDT): She needed a refill of omeprazole which we sent in. Assessment & Plan (10/18/2020 2:10 PM CDT): She is status post Tonny, and continues on omeprazole. No new symptoms reported. Her last EGD in 2019 showed mild reflux esophagitis. Assessment & Plan (09/02/2018 3:42 PM CDT): She had a Tonny fundoplication many years ago. Details are lacking. She is on Nexium twice a day which in the past controlled symptoms reasonably well. Lately, she does have some issues with swallowing and thinks she needs to have the endoscopy we recommended on multiple occasions in the past. We will start to make those arrangements for her. Assessment & Plan (05/18/2017 1:21 PM CDT): No new complaints voiced. Continue omeprazole as needed. Resolved Problems Problem Noted Date Diagnosed Date Resolved Date Tachycardia 06/08/2021 06/28/2021 Overview (06/28/2021): See office visit with JOSE LUIS Hess. EKG -> Afib with borderline RVR, started on Eliquis and beta pro. Assessment & Plan (06/08/2021 4:39 PM CDT): On exam today patient noted to be tachycardic and concern for underlying arrhythmia in the setting of respiratory tract infection and irregular heart beat. Patient does admit that she does not always take her coreg as prescribed. Encouraged her take twice daily as ordered to prevent rebound htn and tachycardia. We did do 12 lead EKG today which showed atrial fibrillation rate of 100. Patient will continue BB at this time. She will also be started on eliquis 5 mg BID for AC as CHADSVASC 2 score of 6. Patient denies any history of GI bleed, hematuria or coughing up blood. No history of hemorrhagic CVA. Risk and benefits of AC were discussed with patient and she voiced understanding. She was provided with samples of Eliquis today and rx sent to pharmacy she will follow up in 2 weeks or sooner as needed. She will most likely need tele monitor, echo and cardiology eval for further evaluation will re-evaluate at 2 week visit. Upper respiratory tract infection 06/08/2021 04/16/2022 Overview (04/16/2022): Saw JOSE LUIS Hess. Improved with time and [employer]. Assessment & Plan (06/23/2021 12:25 PM CDT): She had a pretty bad upper respiratory infection about two weeks ago. She saw JOSE LUIS Hess. Chest x-ray and blood work were unremarkable. She was given a Z-Ketan. In general she feels improved, but is still coughing and bringing up yellow phlegm which could be her asthma. Today, lungs are clear and oxygen saturation is normal. We will see her back in two weeks. Assessment & Plan (06/08/2021 3:24 PM CDT): Patient presents with cough, congestion, sinus pressure, chills and diaphoresis x over 10 days. She denies any recent ill contacts. She was not vaccinated for covid or flu. She is declining covid and flu testing today. She reports she had covid in the past and does not feel that this could be covid today. Encouraged testing to r/o viral etiology, but still declines. We will do lab today to look for leukocytosis or electrolyte disturbance or dehydration in the setting of tachycardia and possible fevers. We will also do CXR to r/o any acute cardiopulmonary process given persistent cough and worsening symptoms. She will be started on antibiotic for bacterial process and will follow up in 2 weeks or sooner if needed. COVID-19 virus detected 01/23/202009/20 Overview (01/27/2020): Tested positive COVID-19 at [facility] 01/23/20. Positive colorectal cancer s creening using Cologuard test 10/01/2018 09/30/2020 Overview (09/30/2020): Added automatically from request for surgery [id number], colonoscopy 11/06/2018, tubular adenoma and multiple hyperplastic polyps resected, Dr. Dixon, [facility]. Cough 12/18/2017 06/21/2021 Overview (09/02/2018): Related to asthma, pneumonia, see office notes. Assessment & Plan (12/26/2017 12:56 PM HEALTH SCIENCES DEPARTMENT CHAIR): The cough is keeping her up at night. She needed a refill of her albuterol inhaler which we provided. We also gave her a cough medicine with codeine, risk of medication discussed. Follow-up in a week if not improving. Community acquired pneumonia 12/18/2017 09/02/2018 Overview (09/02/2018): Treated as OP and resolved, see office notes. Assessment & Plan (12/26/2017 12:55 PM HEALTH SCIENCES DEPARTMENT CHAIR): She has been sick for about a week. She has had chills and sweats. Her thermometer broke so she has not been able to take her temperature. She has been coughing up yellow and green phlegm. Lungs are clear, but it sounds like she probably has underlying pneumonia. We will put her on Levaquin for five days, risks of medication discussed. Return within a week if not improving. Acute bacterial sinusitis 06/12/2017 Overview (09/02/2018): See phone messages. Hypertension 10/01/2015 11/05/2016 Overview (05/25/2016): HTN (hypertension) Narcolepsy 03/30/2013 11/05/2016 Overview (05/24/2016): Narcolepsy Vertigo 04/22/2012 06/28/2021 Overview (06/28/2021): Details lacking. Migraine without status migr ainosus, not intractable 11/17/2011 09/02/2018 Overview (09/02/2018): Horrible migraines when her kids were little, resolved over the years. History of gastroesophageal reflux (GERD) 04/22/2009 11/05/2016 Overview (05/26/2016): History of gastroesophageal reflux (GERD) Immunizations Immunization Administration Dates Next Due Influenza, Split 01/20/2013 Influenza, Trivalent, IM (MDV) 01/21/2014 Influenza, Unspecified 12/11/2022(Deferred: Leslie ent Refused) Pneumococcal Conjugate PCV 13 10/01/2015 Pneumococcal Polysaccharide PPV23 11/11/2009 Td, adsorbed 11/11/2009 Tdap 06/28/2015 ZOSTER Recombinant 11/12/2022,07/26/2022 Surgical History Surgery Date Site/Laterality Comments TONNY FUNDOPLICATION Tonny fundoplication KNEE SURGERY Torn meniscus: Knee surgery CERVICAL CONE BIOPSY 02/20/1964 - 02/18/1965 ABNORMAL PAPS - DEBORA 3: CERVICAL CONE COLONOSCOPY 10/20/2009 - 11/18/2009 [place], details lacking. COLONOSCOPY 11/06/2018 Tubular adenoma and multiple hyperplastic polyps resected, Dr. Dixon, [facility]. ESOPHAGOGASTRODUODENOSCOPY 01/22/2019 Mild reflux erosive esophagitis. Minimal reflux esophagitis on biopsy, MELISSA Dixon. DEXA SCAN 10/21/2020 Low bone density, [facility] COLONOSCOPY 10/20/2018 - 11/18/2018 EXCISION BENIGN SKIN LESION SCALP / NECK / HANDS / FEET / GENITALIA 12/21/2022 N/A Pilar (trichelema) cyst x3, Dr. Chris Langston, dermatology. 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 Cough 12/18/2017 Related to asthm a, pneumonia, see office notes. Acute bacterial sinusitis 06/12/2017 See ph one messages. Migraine without status migr ainosus, not intractable 11/17/2011 Horrible migraines when her kids were little, resolved over the years. Shingles 2014 Right lower back started on acyclovir. Asthma Non morbid obesity 11/08/2012 Obesity Positive colorectal cancer s creening using Cologuard test 10/01/2018 Added automatically from [employer] uest for surgery [id number], colonoscopy 11/06/2018, tubular adenoma and multiple hyperplastic polyps resected, Dr. Dixon, [facility]. COVID-19 virus detected 01/23/2020 Tested p ositive COVID-19 at [facility] 01/23/20. Cough 12/18/2017 Related to asthm a, pneumonia, see office notes. Osteopenia of spine 03/16/2017 Follow up MELISSA muller, 10/21/2020: AP LUMBAR SPINE L1-L4: T-score is -1.7 LEFT HIP: T-score is -0.1 Femoral neck T-score is -1.9 Vertigo 04/22/2012 Details lacking. Tachycardia 06/08/2021 See office visit with JOSE LUIS Hess. EKG -> Afib with borderline RVR, started on Eliquis and beta pro. Pain 04/01/2013 From osteoarthri tis of multiple joints. Atopic dermatitis of scalp 09/14/2021 Saw JOSE LUIS Smiley for itchy macular scaly rash of posterior neck and hairline, treated with HC and nystatin. Upper respiratory tract infection 06/08/2021 Saw JOSE LUIS Hess. Improved with time and Z-Pack. Obesity (BMI 30-39.9) 11/08/2012 Obesity Family History Medical History Relation Name Comments Lung cancer Brother 2 Cancer -lung; Alzheimer's disease Brother 3 Alzheime r's Disease; Asthma Daughter Asthma; Tuberculosis Father Breast cancer Mother Cancer -breast ; Diabetes Mother Diabetes mellit us; Diabetes type II Mother Diabetes -T ype 2; Migraines Mother Migraines; /Dylon rene; Stroke Mother Stroke; Cervical cancer Mother's Sister 1 Cancer -cervical; Breast cancer Mother's Sister 2 Cancer -b reast; Hypertension Other Family history of Hypertension; Colon cancer Sister Hypertension Sister Hypertension; Relation Name Status Comments Brother 1 Alive Brother 2 Brother 3 Daughter Father Mother Mother's Sister 1 Mother's Sister 2 Other Sister Social History Tobacco Use Types Packs/Day Years Used Date Smoking Tobacco: Never Smokeless Tobacco: Never Tobacco Cessation:Counseling Given: Yes Alcohol Use Standard Drinks/Week Comments No 0 (1 standard drink = 0.6 oz pur e alcohol) PHQ-2 Answer Date Recorded PHQ-2 Total Score (If total score is 3 or more points, staff should administer the PHQ-9) 0 10/18/2020 Comments No Sex and Gender Information Value Date Recorded Sex Assigned at Not on file Legal Sex Female 1:18 PM HEALTH SCIENCES DEPARTMENT CHAIR Gender Identity Not on file Sexual Orientation Not on file Obstetrics History Para Term AB IAB SAB Ectopic Multiple Livin g Live Births 7 6 6 0 1 6 Date Outcome GA Total Labor Labor//3rd Weight Sex Type Anes PTL Romi A1 A5 Name Clin Term Term Term Term Term Term AB Last Filed Vital Signs Vital Sign Reading Time Taken Comments Blood Pressure 130/86 09/14/2021 11:10 AM CDT Pulse 79 09/14/2021 11:10 AM CDT Temperature 36.4 C (97.5 F) 09/14/2021 11:10 AM CDT Respiratory Rate 20 09/14/2021 11:10 AM CDT Oxygen Saturation 98% 09/14/2021 11:10 AM CDT Inhaled Oxygen Concentration - - Weight 100.2 kg (221 lb) 09/14/2021 11:10 AM CDT Height 170.2 cm (5' 7) 09/14/2021 11:10 AM CDT Body Mass Index 34.61 09/14/2021 11:10 AM CDT Plan of Treatment Health Maintenance Due Date Last Done Comments Hepatitis B Screening 1958 Depression Screening 10/18/2021 10/18/2020, 09/02/2018, 09/02/2018 Fall Risk Assessment 10/18/2021 10/18/2020, 09/03/19 19 Well Visit 65+ 11/19/2021 11/19/2020, 09/21, 09/02/2018, Additional history exists Osteoporosis Screening-Bone Density Scan 10/21/2022 10/21/2020 Influenza Vaccine (Season Ended) 2024 01/22/20 14, 01/20/2013 DTaP/Tdap/Td Vaccine (2 - Td or Tdap) 06/27/2025 06/28/2015, 11/11/2009 Pneumococcal vaccine 65+ Completed 10/01/2015, 10/21 Zoster Vaccine Completed 11/12/2022, 07/26/2022 Procedures Procedure Name Priority Date/Time Associated Diagnosis Comments DEXA AXIAL SKELETON BONE DENSITY 1 OR MORE SITES Schedule Routine, Read Routine (OP Routine) 10/21/2020 12:06 PM CDT Menopause from Last 3 Months or Most Recently Relevant to Health Maintenance Results * Dexa Axial Skeleton Bone Density 1 or 2 Site (10/21/2020 12:06 PM CDT) Anatomical Region Laterality Modality Body N/A Other 10/21/2020 12:5 8 PM CDT Narrative 10/21/2020 12:59 PM CDT EXAM DESCRIPTION: DEXA AXIAL SKELETON BONE DENSITY 1 OR MORE SITES REASON FOR STUDY: Post-menopausal female, screening for osteoporosis. Estimator Printing Plate Making/Model: i-drive A (S/N [id number]) CLINICAL INFORMATION: Current height: 67 inches Maximum height: 68 inches Weight: 227 pounds Risk factors: None COMPARISON: None available. FINDINGS: AP LUMBAR SPINE L1-L4: Total BMD is 0.856 g/cm2 T-score is -1.7 LEFT HIP: Total BMD is 0.931 g/cm2 T-score is -0.1 Femoral neck BMD is 0.636 g/cm2 T-score is -1.9 IMPRESSION: 1. Low bone mass by WHO criteria. 2. The WHO fracture risk assessment tool (FRAX) indicates that the 10 year risk for a major osteoporotic fracture is 14% and the 10 year risk for a hip fracture is 3.6%. The FRAX tool has not been validated in patients currently or previously treated with pharmacotherapy for osteoporosis. In such patients, clinical judgement must be exercised in interpreting FRAX scores as the fracture risk may be overestimated. REFERENCE: Bone mineral density: Normal (T-score above or = -1.0) Low bone mass (T-score between -1.0 and -2.5) replaces the previously used term osteopenia Osteoporosis (T-score = or below -2.5) Medical evaluation for secondary causes of low bone mineral density may be appropriate. FRAX is a World Health Organization validated fracture risk assessment tool that calculates a person's 10 year probability of a major osteoporosis related fracture and hip fracture. According to the National Osteoporosis Foundation guidelines, postmenopausal women and men age 50 or older with low bone mass and a 10 year probability of a major osteoporosis related fracture = or greater than 20% or a 10 year probability of a hip fracture = or greater than 3% should be considered for treatment. For further information, including treatment recommendations, please refer to the 2013 ISCD Official Positions (http://www.iscd.org) and the NOF's Clinician's Guide to Prevention and Treatment of Osteoporosis (http://www.nof.org/professionals/clinical-guidelines) THIS IS AN ELECTRONICALLY VERIFIED FINAL REPORT 10/21/2020 12:59 PM - Electronically signed by Everardo Barney M.D. AB: Report ID: [id number] Reading Location: [place] [address] Procedure Note Everardo Barney MD - 10/21/2020 EXAM DESCRIPTION: DEXA AXIAL SKELETON BONE DENSITY 1 OR MORE SITES REASON FOR STUDY: Post-menopausal female, screening for osteoporosis. Estimator Printing Plate Making/Model: i-drive A (S/N [id number]) CLINICAL INFORMATION: Current height: 67 inches Maximum height: 68 inches Weight: 227 pounds Risk factors: None COMPARISON: None available. FINDINGS: AP LUMBAR SPINE L1-L4: Total BMD is 0.856 g/cm2 T-score is -1.7 LEFT HIP: Total BMD is 0.931 g/cm2 T-score is -0.1 Femoral neck BMD is 0.636 g/cm2 T-score is -1.9 IMPRESSION: 1. Low bone mass by WHO criteria. 2. The WHO fracture risk assessment tool (FRAX) indicates that the 10 year risk for a major osteoporotic fracture is 14% and the 10 year risk for ahip fracture is 3.6%. The FRAX tool has not been validated in patients currently or previously treated with pharmacotherapy for osteoporosis. In such patients, clinical judgement must be exercised in interpreting FRAX scores as the fracturerisk may be overestimated. REFERENCE: Bone mineral density: Normal (T-score above or = -1.0) Low bone mass (T-score between -1.0 and -2.5) replaces thepreviously used term osteopenia Osteoporosis (T-score = or below -2.5) Medical evaluation for secondary causes of low bone mineral density may be appropriate. FRAX is a World Health Organization validated fracture risk assessmenttool that calculates a person's 10 year probability of a major osteoporosisrelated fracture and hip fracture. According to the National OsteoporosisFoundation guidelines, postmenopausal women and men age 50 or older with low bonemass and a 10 year probability of a major osteoporosis related fracture = or greater than 20% or a 10 year probability of a hip fracture = or greaterthan 3% should be considered for treatment. For further information, including treatment recommendations, please referto the 2013 ISCD Official Positions (http://www.iscd.org) and the NOF's Clinician's Guide to Prevention and Treatment of Osteoporosis (http://www.nof.org/professionals/clinical-guidelines) THIS IS AN ELECTRONICALLY VERIFIED FINAL REPORT 10/21/2020 12:59 PM - Electronically signed by Everardo Barney M.D. AB: Report ID: [id number] Reading Location: [place] [address] Ronald Frazier MD IMG DXA PROCEDURES Final Resu lt from Last 3 Months or Most Recently Relevant to Health Maintenance Insurance [facility] [address] [address] [facility] [employer] MEDICARE GOLD Advance Directives For more information, please contact: [phone] * Full Code (Latest Code Status on File) Date Activated Date Inactivated Comments 01/22/2019 11:36 AM 01/22/2019 2:41 PM * Full Code Date Activated Date Inactivated Comments 01/22/2019 11:35 AM 01/22/2019 11:36 AM * Full Code Date Activated Date Inactivated Comments 11/06/2018 8:53 AM 11/06/2018 3:22 PM * Full Code Date Activated Date Inactivated Comments 11/06/2018 8:53 AM 11/06/2018 8:53 AM Care Teams Teletypist Relationship Specialty Start Date End Date Ronald Frazier MD [address] [place] [address] PCP - General 05/19/16 Evita Nash MD [address] [address] Consulting Physician Neurology 11/10/16 Albin Javed MD [address] [place] [address] Consulting Physician Orthopedic Surgery 09/28/16 Juliana Guerrero, DPM [address] [facility] [address] [place] [address] Consulting Physician Podiatry 01/28/17 Karina Menezes MD [address] [place] [address] Field Advisor Obstetrics and Gynecology 09/02/18 Herman Dixon MD [address] [place] [address] Consulting Physician Gastroenterology 01/22/19 Tammy Casas, ANNMARIE [address] [place] [address] Nurse Practitioner Sleep Medicine 09/26/19 Cruzito Moseley DPM [address] [place] [address] Consulting Physician Podiatry 10/17/21 Shasha Stanley, ANNMARIE [address] [place] [address] [place] [address] Nurse Practitioner Dermatology 11/03/21 Eugenio Mccoy PA [address] [place], [place] [id number] Physician Door Repairman Dermatology 07/04/23 Alissa Schmidt MD [address] [facility] [address] [place] [address] Consulting Physician Pulmonary Disease 07/03/23
--- OUTSIDE RECORDS SUMMARY | 2024-07-30 15:20 | XMS_ITS | Referral Summary ---
Author Organization [facility] Address [address] [place] [address] Care Team Providers Care Popcorn Attendant Name Role Phone Ronald Frazier MD Primary Care Provider [phone] Evita Nash MD Unavailable Albin Javed MD Unavailable [phone] Juliana Guerrero DPM Unavailable [phone] Karina Menezes MD Unavailable Herman Dixon MD Unavailable [phone] Tammy Casas NP Unavailable [phone] Cruzito Moseley DPM Unavailable [phone] Shasha Stanley NP Unavailable [phone] Eugenio Mccoy Unavailable [phone] Alissa Schmidt MD Unavailable [phone] Allergies Active Allergy Reactions Criticality Noted Date [...] breasts. Assessment & Plan (12/29/2018 7:38 AM ASPHALT SPREADER OPERATOR): About three weeks ago, she developed an [...] (09/30/2020): Added automatically from request for surgery [id number], EGD 01/22/2019, mild reflux erosive esophagitis. Minimal reflux esophagitis on biopsy, MELISSA iDxon. Heart murmur, systolic 08/19/2017 Assessment & Plan [...] She reports recent xray by chiropractor in [place] and will attempt to obtain records. She [...] will refer her to Dr. Wells in [place]. Fibrocystic breast changes 06/18/2012 Overview (05/26/2016): Fibrocystic [...] fibrillation 08/19/2006 Overview (06/23/2021): First diagnosed in [place], patient was told it was nothing to [...] needed. Assessment & Plan (12/26/2017 12:56 PM ASPHALT SPREADER OPERATOR): She has mild, intermittent and mostly seasonal asthma. She is out of her inhaler, so we sent in a refill. Gastroesophageal reflux disease 02/19/1949 Overview (01/22/2019): GERD, status post Cynthia. EGD on 01/22/2019:Mild reflux erosive esophagitis, biopsied; normal stomach and duodenum. Dr. Dixon [facility]. Assessment & Plan (07/06/2021 2:56 PM [...] 2:10 PM CDT): She is status post Cynthia, and continues on omeprazole. No new symptoms reported. Her last EGD in 2019 showed mild reflux esophagitis. Assessment & Plan (09/02/2018 3:42 PM CDT): She had a Cynthia fundoplication many years ago. Details are lacking. [...] (09/30/2020): Added automatically from request for surgery [id number], colonoscopy 11/06/2018, tubular adenoma and multiple hyperplastic polyps resected, Dr. Dixon, [facility]. Cough 12/18/2017 06/21/2021 Overview (09/02/2018): Related to asthma, pneumonia, see office notes. Assessment & Plan (12/26/2017 12:56 PM ASPHALT SPREADER OPERATOR): The cough is keeping her up at night. She needed a refill of her albuterol inhaler which we provided. We also gave her a cough medicine with codeine, risk of medication discussed. Follow-up in a week if not improving. Community acquired pneumonia 12/18/2017 09/02/2018 Overview (09/02/2018): Treated as OP and resolved, see office notes. Assessment & Plan (12/26/2017 12:55 PM ASPHALT SPREADER OPERATOR): She has been sick for about a [...] adsorbed 11/11/2009 Tdap 06/28/2015 ZOSTER Recombinant 11/12/2022,07/26/2022 Social History Tobacco Use Types Packs/Day Years [...] on file Legal Sex Female 1:18 PM ASPHALT SPREADER OPERATOR Gender Identity Not on file Sexual Orientation [...] 09/14/2021 11:10 AM CDT Plan of Treatment Not on file Procedures Procedure Name Priority Date/Time Associated Diagnosis [...] FOR STUDY: Post-menopausal female, screening for osteoporosis. Supervisor Concrete [employer] Fabricating/Model: GIROPTIC A (S/N [id number]) CLINICAL INFORMATION: Current height: 67 inches Maximum [...] by Everardo Barney M.D. AB: Report ID: [id number] Reading Location: [place] [address] Procedure Note Everardo Barney MD - 10/21/2020 EXAM DESCRIPTION: DEXA AXIAL SKELETON BONE DENSITY 1 OR MORE SITES REASON FOR STUDY: Post-menopausal female, screening for osteoporosis. Supervisor Concrete [employer] Fabricating/Model: GIROPTIC A (S/N [id number]) CLINICAL INFORMATION: Current height: 67 inches Maximum [...] by Everardo Barney M.D. AB: Report ID: [id number] Reading Location: [place] [address] Ronald Frazier MD IMG DXA PROCEDURES Final Resu lt from Last 3 Months or Most Recently Relevant to Health Maintenance Insurance [facility] Member Subscriber Plan / Payer ( fective 2020-Present) Name:ChristoChapis Relation to Subscriber:Self Name:ChristoChapis Payer ID:[id number] (NAIC) Type:MEDICARE RISK OTHER Address: [address] [facility] AETNA MEDICARE GOLD Advance Directives For more information, please contact: [phone] * Full Code (Latest Code Status on File) Date Activated Date Inactivated Comments 01/22/2019 11:36 AM 01/22/2019 2:41 PM * Full Code Date Activated Date Inactivated Comments 01/22/2019 11:35 AM 01/22/2019 11:36 AM * Full Code Date Activated Date Inactivated Comments 11/06/2018 8:53 AM 11/06/2018 3:22 PM * Full Code Date Activated Date Inactivated Comments 11/06/2018 8:53 AM 11/06/2018 8:53 AM Care Teams Popcorn Attendant Relationship Specialty Start Date End Date Ronald Frazier MD [address] [place] [address] PCP - General 05/19/16 Evita Nsah MD [address] [place] [address] Consulting Physician Neurology 11/10/16 Albin Javed MD [address] [place] [address] Consulting Physician Orthopedic Surgery 09/28/16 Juliana Guerrero DPM [address] [place] [address] Consulting Physician Podiatry 01/28/17 Karina Menezes MD [address] [place] [address] Director Of Digital Marketing Obstetrics and Gynecology 09/02/18 Herman Dixon MD [address] [place] [address] Consulting Physician Gastroenterology 01/22/19 Tammy Casas NP [address] [place] [address] Nurse Practitioner Sleep Medicine 09/26/19 Cruzito Moseley DPM [address] [place] [address] Consulting Physician Podiatry 10/17/21 Shasha Stanley NP [address] [place] [address] [place] [address] Nurse Practitioner Dermatology 11/03/21 Eugenio Mccoy PA [address] [place], [place] [id number] Physician Inspector Of Weights And Measures Dermatology 07/04/23 Alissa Schmidt MD [address] [facility] [address] [place] [address] Consulting Physician Pulmonary Disease 07/03/23
--- OUTSIDE RECORDS SUMMARY | 2024-07-30 15:21 | XMS_ITS | Encounter Summary ---
Author Organization [facility] Address [address] [place] [address] Care Team Providers Care Barrel Leveler Name Role Phone Ronald Frazier MD Primary Care Provider [phone] Evita Nash MD Unavailable Albin Javed MD Unavailable [phone] Juliana Guerrero DPM Unavailable [phone] Becki Wells MD Unavailable [phone] Karina Menezes MD Unavailable Herman Dixon MD Unavailable [phone] Tammy Casas NP Unavailable [phone] Cruzito Moseley DPM Unavailable [phone] Shasha Stanley NP Unavailable [phone] Eugenio Mccoy Unavailable + [phone] Alissa Schmidt MD Unavailable [phone] Encounter Details Date Type Department Care Team (Late st Contact Info) Description 06/15/2016 Orders Only [facility] ProviderMary MD [facility] [place] [address] Social History Tobacco Use Types Packs/Day Years Used Date Smoking Tobacco: Never Alcohol Use Standard Drinks/Week Comments No 0 (1 standard drink = 0.6 oz pur e alcohol) Comments Unknown Sex and Gender Information Value Date Recorded Sex Assigned at Not on file 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 us Historical Provider [facility] KEVIN GRAYSON Final Result documented in this encounter Visit Diagnoses Not on filedocumented in this encounter Additional Health Concerns Infection Onset Date Last Indicated Resolved Time COVID: Suspected 06/08/2021 06/08/2021 06/08/2021 2:58 PM CDT documented as of this encounter Care Teams Barrel Leveler Relationship Specialty Start Date End Date Ronald Frazier MD [address] [place] [address] PCP - General 05/19/16 Evita Nash MD [address] [place] [address] Consulting Physician Neurology 11/10/16 Albin Javed MD [address] [place] [address] Consulting Physician Orthopedic Surgery 09/28/16 Juliana Guerrero DPM [address] [facility] [address] [place] [address] Consulting Physician Podiatry 01/28/17 Becki Wells MD [address] [facility] [address] [place] [address] Referring Physician Pulmonary Disease 07/20/17 09/27/23 Karina Menezes MD [address] [place] [address] Caramel Cutter Helper Obstetrics and Gynecology 09/02/18 Herman Dixon MD [address] [place] [address] Consulting Physician Gastroenterology 01/22/19 Tammy Casas NP [address] [place] [address] Nurse Practitioner Sleep Medicine 09/26/19 Cruzito Moseley DPM [address] [place] [address] Consulting Physician Podiatry 10/17/21 Shasha Stanley NP [address] [place] [address] [place] [address] Nurse Practitioner Dermatology 11/03/21 Eugenio Mccoy PA [address] [place] [address] Physician Director Translation Dermatology 07/04/23 Alissa Schmidt MD [address] [facility] [address] [place] [address] Consulting Physician Pulmonary Disease 07/03/23 documented as of this encounter
== END 2024-07-30 13:11 | disposition home or self-care (01) ==
PROVIDERS: PCP Family Medicine; Visit Provider Orthopaedic Surgery
DX: M17.0 Bilateral primary osteoarthritis of knee (principal); D16.22 Benign neoplasm of long bones of left lower limb
CPT/HCPCS: 73564

== ENCOUNTER 2024-10-10 15:24 | Outpatient (CLI) | payer MEDICARE, SELFPAY ==
--- NOTE | 2024-10-10 15:44 | ECHO_ITS ---
Patient Info Name: Chapis Villafuerte Age: 84 years : 1940 Gender: Female Ht: 67 in Wt: 220 lbs BSA: 2.21 m2 HR: 74 bpm BP: 145 / 88 mmHg Heart Rhythm: Atrial Fibrillation Technical Quality: Fair Exam Date: 10/10/2024 3:55 PM Patient Status: O Admit Date: 10/10/2024 Exam Type: CA echo doppler color flow Complete two-dimensional, color flow and Doppler transthoracic echocardiogram is performed. Cdl B Driver: Yue Kelley Attending Provider: Mariano England Summary 1. Complete two-dimensional, color flow and Doppler transthoracic echocardiogram is performed. 2. Left ventricular chamber dimension is normal. 3. Left ventricular systolic function is normal, estimated at 65-70. 4. There is mild concentric increased left ventricular wall thickness. 5. The left ventricular diastolic function is normal. 6. D shaped interventricular septum in systole suggestive of RV pressure overload. 7. E/e' 9 is minimally elevated. 8. Atrial fibrillation. 9. Right ventricular chamber dimension is moderately enlarged. 10. Right ventricular systolic function is moderately reduced and with abnormal TAPSE 1.5 cm. 11. Left atrial chamber dimension is severely enlarged. 12. Right atrial chamber dimension is severely enlarged. 13. There is mild aortic valve sclerosis. 14. There is mild aortic valve regurgitation. 15. There is mild mitral valve regurgitation. 16. There is severe tricuspid valve regurgitation. 17. Moderate pulmonary hypertension, estimated pulmonary arterial systolic pressure is 53 mmHg. 18. Tricuspid valve does not coapt due to dilated annulus. 19. There is trace pulmonic regurgitation. 20. The prox ascending aorta size is moderately dilated at 4.5 cm. 21. Dilated inferior vena cava with <50% collapse upon inspiration consistent with significantly elevated right atrial pressure, 15 mmHg. Left Ventricle Atrial fibrillation. Left ventricular chamber dimension is normal. Left ventricular systolic function is normal, estimated at 65-70. There is mild concentric increased left ventricular wall thickness. The left ventricular diastolic function is normal. E/e' 9 is minimally elevated. D shaped interventricular septum in systole suggestive of RV pressure overload. Right Ventricle Right ventricular chamber dimension is moderately enlarged. Right ventricular systolic function is moderately reduced and with abnormal TAPSE 1.5 cm. Left Atria Left atrial chamber dimension is severely enlarged. Right Atria Right atrial chamber dimension is severely enlarged. Aortic Valve The aortic valve is trileaflet. There is mild aortic valve sclerosis. There is no aortic valve stenosis. There is mild aortic valve regurgitation. Pulmonic Valve There is trace pulmonic regurgitation. Mitral Valve There is no mitral valve stenosis. There is mild mitral valve regurgitation. Tricuspid Valve There is severe tricuspid valve regurgitation. Moderate pulmonary hypertension, estimated pulmonary arterial systolic pressure is 53 mmHg. Tricuspid valve does not coapt due to dilated annulus. Pericardium/Pleural There is no pericardial effusion. Inferior Vena Cava Dilated inferior vena cava with <50% collapse upon inspiration consistent with significantly elevated right atrial pressure, 15 mmHg. Aorta The aortic root size at the sinus of Valsalva is normal. The prox ascending aorta size is moderately dilated at 4.5 cm. Left Ventricular Outflow Tract Name Value Normal LVOT 2D LVOT Diameter 2.1 cm LVOT Doppler LVOT Peak Velocity 110 cm/s LVOT Peak Gradient 5 mmHg LVOT Mean Gradient 3 mmHg LVOT VTI 22 cm LVOT VTI/AV VTI Ratio 0.9 LVOT Stroke Volume 75 ml LVOT CO 17.2 l/min LVOT CI 7.8 l/min/m2 Pulmonic Valve Name Value Normal PV Doppler PV Peak Velocity 129 cm/s PV Peak Gradient 7 mmHg Mitral Valve Name Value Normal MV Diastolic Function MV E Peak Velocity 122 cm/s MV A Peak Velocity 7 cm/s MV E/A 16.3 MV Decel Time (PW) 261 ms MV Annular TDI MV E/e' (Septal) 13.4 MV E/e' (Lateral) 7.3 MV E/e' (Average) 10.4 Tricuspid Valve Name Value Normal TV Regurgitation Doppler TR Peak Velocity 307 cm/s TR Peak Gradient 38 mmHg Estimated PAP/RSVP RA Pressure 15 mmHg <=5 PA Systolic Pressure 53 mmHg <36 RV Systolic Pressure 53 mmHg <36 TV Annular TDI TV Lateral Arin s' Velocity 11.4 cm/s >=9.5 Aorta Name Value Normal Ascending Aorta Ao Root Diameter (MM) 3.1 cm Ao Root Diam Index (MM) 1.4 cm/m2 Aortic Valve Name Value Normal AV Doppler AV Peak Velocity 146 cm/s AV Peak Gradient 8 mmHg AV Mean Gradient 5 mmHg AV VTI 25 cm AV Area (Cont Eq VTI) 3.0 cm2 >=3.0 AV Area (Cont Eq Cyril) 2.5 cm2 AV DI (Cyril) 0.76 AV Regurgitation 2D LVOT Area 3.4 cm2 Ventricles Name Value Normal LV Dimensions 2D/MM IVS Diastolic Thickness (2D) 1.3 cm 0.6-1.0 LVID Diastole (2D) 3.7 cm 3.8-5.2 LVIW Diastolic Thickness (2D) 1.3 cm 0.6-0.9 LVID Systole (2D) 2.8 cm 2.2-3.5 LVOT Diameter 2.1 cm LV Mass (2D Cubed) 158.76 g 67.00-162.00 LV Mass Index (2D Cubed) 72 g/m2 43-95 Relative Wall Thickness (2D) 0.68 <=0.42 LV Fractional Shortening/Ejection Fraction 2D/MM LV Fractional Shortening (2D) 25 % 27-45 LV EF (2D Teichholz) 50 % LV Diastolic Volume (4C MOD) 77 ml LV EF (4C MOD) 66 % LV Diastolic Volume (2C MOD) 86 ml LV EF (2C MOD) 68 % LV Diastolic Volume (BP MOD) 82 ml 46-106 LV Diastolic Volume Index (BP MOD) 37 ml/m2 29-61 LV Systolic Volume (BP MOD) 27 ml 14-42 LV Systolic Volume Index (BP MOD) 12 ml/m2 8-24 LV EF (BP MOD) 67 % 54-74 LV Diastolic Length (4C) 6.8 cm LV Systolic Length (4C) 5.5 cm LV Stroke Volume (4C MOD) 51 ml RV Dimensions 2D/MM RVID Diastole (2D) 5.6 cm 2.1-3.5 Atria Name Value Normal LA Dimensions LA Dimension (MM) 5.9 cm 2.7-3.8 LA Volume (4C A-L) 90 ml LA Volume (BP A-L) 109 ml RA Dimensions RA Systolic Major [place] Length (4C) 7.9 cm 2.2-2.8 RA Area (4C) 48.0 cm2 <=18.0 Report Signatures
== END 2024-10-10 15:25 | disposition home or self-care (01) ==
PROVIDERS: PCP Family Medicine; Visit Provider Physician Assistant
DX: I50.9 Heart failure, unspecified (principal); R01.1 Cardiac murmur, unspecified; I49.9 Cardiac arrhythmia, unspecified; I48.0 Paroxysmal atrial fibrillation; R06.09 Other forms of dyspnea; I08.3 Combined rheumatic disorders of mitral, aortic and tricuspid valves
CPT/HCPCS: 93306